=== PATIENT | male | born 1960 | race Caucasian/White ===

== ENCOUNTER 2018-08-25 12:00 | Outpatient (RCR) | payer MEDICARE, MEDICAID, SELFPAY ==
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
--- NOTE | 2018-08-25 14:58 | HP.SP.DC ---
ST Discharge Summary - Discharged: Discharge: Modesto Posey is discharged from outpatient speech-language therapy effective 08/25/18. Modesto attended six sessions following his initial evaluation targeting diaphragmatic breathing and appropriate phrasing for breath support to improve vocal intensity. Additionally, Modesto utilized compensatory strategies (increasing volume, slowing rate, over-exaggerating articulation, and facing his listener) to improve overall intelligibility, as well as working to appropriately respond to a conversation partners cues. Modesto was able to demonstrate successful use of all strategies given minimal to moderate prompting during therapy sessions. However, he did state feeling somewhat uncomfortable increasing his vocal volume. Please reconsult as necessary.
== END 2018-08-25 19:00 | disposition home or self-care (01) ==
LOC: SP 12:00
PROVIDERS: Family Provider Internal Medicine; PCP Internal Medicine; Referring Provider Internal Medicine; Visit Provider Internal Medicine
DX: R47.89 Other speech disturbances (principal)
CPT/HCPCS: 92507; 92524

== ENCOUNTER → 2018-11-03 13:41 | Outpatient (CLI) | payer MEDICARE, MEDICAID, SELFPAY ==
[2017-03-27 11:45] VITALS: BMI 34.9
[2018-11-03 16:02] LABS: Anion Gap 5 (5-15); BUN 14 mg/dL (7-18); BUN/Creat Ratio 18.3 RATIO (10-20); Calcium,Total 8.4 mg/dL (8.5-10.1); Chloride 109 mmol/L (98-107); Creatinine, Serum 0.76 mg/dL (0.70-1.30); EST Glomerular Filtration Rate 111 mL/min (>60); Est Glom Filt Rate - Afr Amer 134 mL/min (>60); Glucose 80 mg/dL (74-106); PSA,Total - Annual Screen 0.73 ng/mL (0.00-4.00); Potassium 4.4 mmol/L (3.5-5.1); Sodium Level 142 mmol/L (136-145)
== END ==
PROVIDERS: Family Provider Internal Medicine; PCP Internal Medicine; Referring Provider Urology; Visit Provider Urology
DX: R33.9 Retention of urine, unspecified (principal); Z12.5 Encounter for screening for malignant neoplasm of prostate; Z87.448 Personal history of other diseases of urinary system
CPT/HCPCS: 36415; 80048; 84153; G0103

== ENCOUNTER 2019-09-10 11:07 | Emergency (ER) | payer MEDICARE, MEDICAID, SELFPAY ==
[2019-09-10 11:10] VITALS: BP 149/101; PULSE 69; RESP 16; TEMP 36.1; O2SAT 98; BMI 32.8
--- NOTE | 2019-09-10 11:22 | ED.VIS.INJ ---
History of Present Illness Chief Complaint: Fall Informant: Patient, - - Caregiver Limited: - - Mild intellectual disability Onset: Today Mechanism/Context: Fall Quality of Pain: - - Head Current Severity: Gone Maximum Severity: Mild Worsened by: Initial impact Relieved by: Nothing Associated Symptoms: Negative for: Parasthesias, Weakness, Loss of consciousness, Amnesia Narrative: Patient is 58-year-old male with mild intellectual disability who presents after fall. He slipped on the ice. Fell backwards landed his buttocks and hit the back of his head. He complained of mild head discomfort and dizziness. He did not complain of visual disturbance. There was no vomiting. Caregiver states he is at baseline presently. He voices no complaints on questions asked. Tetanus Immunization: <5 years Prior similar symptoms: No Recent Illness/Hospitalization: No - Past Medical History (1) Mild intellectual disability Status: Acute Past Medical History - Allergies and Home Meds Allergies/Adverse Reactions: Allergies No Known Allergies Allergy (Verified 09/10/19 11:11) Primary Care Physician: Ester Alexander DO [Primary Care Provider] - Prior records reviewed: Yes Surgical History: noncontributory Lives: Roommate Smoking Status: Never smoker Alcohol: None Drugs: None Review of Systems General: Denies: Fever Eyes: Denies: Visual changes - bilaterally, Blurred Vision - bilaterally ENT: Denies: Bilateral ear pain Cardiovascular: Denies: Chest pain, Palpitations Respiratory: Denies: Dyspnea Gastrointestinal: Denies: Nausea, Vomiting Musculoskeletal: Denies: Myalgias, Arthralgias, Neck pain, Back pain, Swelling, Extremity Pain Skin: Denies: Rash, Wounds Neurological: Reports: Headache, - - Dizziness. Unable to quantitate her qualitate. Hematologic: Denies: Easy bruising, Easy bleeding Allergy: Denies: Uticaria, Swelling of the mouth Physical Exam Vital Signs/Narrative: Vital Signs Temp Pulse Resp BP Pulse Ox 09/10/19 11:10 97 F L 69 16 149/101 H 98 Inital Vital Signs reviewed: Yes General: Well nourished, Well developed Head: Normocephalic, Trauma, Tenderness, - - Is evidence of a occipital hematoma. There is no palpable depression. There is no clinical findings of basilar skull fracture.. Negative for: Atraumatic Eyes: Perrl, EOMI, - - There is no subconjunctival hemorrhage noted.. Negative for: Pale conjunctiva, Scleral icterus ENT: TM's clear, No hemotympanum or drainage, No trauma Neck: Nontender, Full ROM Cardiovascular: Regular rate, Regular rhythm, No murmurs Respiratory: No distress, CTA bilaterally, Chest nontender Abdomen: Soft, Nontender, Nondistended, Normal bowel sounds, - - No pain palpation of the pelvis and specifically sacrum and coccyx region. Back: Nontender Skin: Normal color, No rash Neurological: Alert, Oriented x3, Cranial nerves II-XII grossly intact, Normal Strength, Normal Sensation, Normal DTR - DTR 2+ upper and lower extremity and symmetric., Normal Gait, - - Cerebellar testing normal. Gait normal. Able to walk on heels and toes. Tandem gait normal. Psychological: Normal affect Diagnostic/Tx/Re-eval - Medical Decision Making With a nonfocal neurologic exam no loss of consciousness per the [place] CT head rule imaging is not warranted. Patient was discharged to home with appropriate home-going instructions for concussion. There is evidence of a scalp contusion. ED Disposition - Plan for ED Patient: Disposition: Home or Assisted Living Diagnosis: Concussion without loss of consciousness, initial encounter, Scalp contusion Instructions: CONCUSSION, No Wake Up Referrals: Ester Alexander DO [Primary Care Provider] - 1-2 Weeks
== END 2019-09-10 11:37 | disposition home or self-care (01) ==
LOC: ED 11:36
PROVIDERS: Emergency Provider Emergency Medicine; PCP Internal Medicine
DX: S06.0X0A Concussion without loss of consciousness, initial encounter (principal); W00.0XXA Fall on same level due to ice and snow, initial encounter; F70 Mild intellectual disabilities
CPT/HCPCS: 99282

== ENCOUNTER → 2019-12-28 10:39 | Outpatient (CLI) | payer MEDICARE, MEDICAID, SELFPAY ==
[2019-12-28 11:28] LABS: PSA,Total- Diagnostic 0.88 ng/mL (0.0-4.0)
--- OUTSIDE RECORDS SUMMARY | 2020-05-01 13:30 | XMS RPT_ITS | CCD ---
:1960 External Reference #:[id number] Author Organization [facility] Care Team Providers Name Role Phone Catherine Unavailable Richard King Unavailable Catherine Unavailable State mental [facility] facility Unavailable [place] Unavailable Unavailable [place] Unavailable Unavailable Messenger Unavailable Unavailable [facility] [place] Unavailable Richard King MD Unavailable Catherine Unavailable Richard King Unavailable Catherine [facility] Unavailable [place] Unavailable Unavailable Messenger Unavailable Unavailable [facility] [place] Unavailable Arie Lam PA-C Unavailable Catherine Attending Unavailable Catherine Referring Unavailable Catherine Consulting Unavailable Hussein Unavailable Unavailable Gravius Unavailable Unavailable [place] Unavailable Unavailable Hussein Unavailable Unavailable Allergies Reported Allergen Reaction(s) Severity Date of Onset Location NEGATED: Highlighted row 03-25-2017 - Com prehensive Internal has been ruled out! Medicine ([id number]) NEGATED: Highlighted row Com prehensive Internal has been ruled out! Medicine ([id number]) Medications Medication Name Sig Date Prescriber Location acetaminophen / BENADRYL 04-10-2007 Comprehensiv e diphenhydrAMINE / ALLERGY/COLD, - Internal Medicine phenylephrine 12.5-5-325MG (Oral 01-29-2011 (98610) Tablet) Tablet prn for 0 days Refills: 0 Ordered: 29-Jan-2011 Start : 10-Apr-2007 End : 29-Jan-2011 Inactive amoxicillin / AUGMENTIN, 02-03-2015 Carol Sara Comprehensi ve clavulanate 875-125MG (Oral - Internal Med icine Tablet) 1 (one) 12-14-2015 (44605) Tablet Tablet bid for 0 days Quantity: 20 {Tablet} Refills: 0 Ordered: 14-Dec-2015 Carol Ruiz LPN Start : 03-Feb-2015 End : 14-Dec-2015 Inactive bacitracin / neomycin TRIPLE ANTIBIOTIC, 03-06-2011 Carol Choudhury er Comprehensive / polymyxin b 5-400-5000 - Internal Medic ine (External 05-14-2011 (50336) Ointment) 1 Ointment daily for 0 days Quantity: 1 {Ointment} Refills: 0 Ordered: 14-May-2011 Carol Ruiz LPN Start : 06-Mar-2011 End : 14-May-2011 Inactive bethanechol URECHOLINE 25 MG 03-07-2017 [facility] Surgica l TABS One tablet by Associate s (80286) mouth twice daily BETHANECHOL CHLORIDE [id number] Oz King MD BETHANECHOL CHLORIDE, 25MG 12-14-2015 Carol alvarado [facility] Surgical Associates (Oral Tablet) 2 (two) Catherine (72279) Tablet qid for 0 days Quantity: 60 {Tablet} Refills: 0 Ordered: 14-Dec-2015 Ester Cruz DO, DO, Kathleen Start : 14-Dec-2015 Active Centrum CENTRUM (Oral Tablet) 1 qd Carol rodriguez Comprehensive Internal for 0 days Refills: 0 Medici ne (90918) Ordered: 10-Feb-2009 Carol Ruiz LPN Active CENTRUM (Oral Tablet) 1 qd for 0 Carol [facility] Comprehensive Internal Medicine days Refills: 0 Ordered: (39628) 10-Feb-2009 Carol Ruiz LPN Active CENTRUM (Oral CENTRUM (Oral Tablet) 1 Carol [facility] Comprehensive Internal Tablet) qd for 0 days Refills: Medic ine (72991) 0 Ordered: 10-Feb-2009 Carol Ruiz LPN Active CENTRUM (Oral Tablet) 1 qd for 0 Carol [facility] Internal Medicine days Refills: 0 Ordered: (22157) 10-Feb-2009 Carol Ruiz LPN Active CENTRUM (Oral Tablet) 1 qd for 0 [facility] Internal Medicine days Refills: 0 Ordered: (47541) 10-Feb-2009 Carol Ruiz LPN Active CENTRUM (Oral Tablet) 1 qd for 0 [facility] Internal Medicine days Refills: 0 Ordered: (04216) 10-Feb-2009 Carol Ruiz LPN Active CENTRUM (Oral Tablet) 1 qd for 0 [facility] Internal Medicine days Refills: 0 Ordered: (05603) 10-Feb-2009 Carol Ruiz LPN Active CENTRUM (Oral Tablet) 1 qd for 0 [facility] Internal Medicine days Refills: 0 Ordered: (05779) 10-Feb-2009 Carol Ruiz LPN Active CENTRUM (Oral Tablet) 1 qd for 0 [facility] Internal Medicine days Refills: 0 Ordered: (93974) 10-Feb-2009 Carol Ruiz LPN Active ciprofloxacin CIPRO, 250MG (Oral 08-26-2008 - Staci Ciesa Comprehe nsive Tablet) 1 (one) 09-03-2008 Internal Med icine Tablet bid for 7 (71428) days Quantity: 20 {Tablet} Refills: 0 Ordered: 26-Aug-2008 Ciesa [employer] Staci Start : 26-Aug-2008 End : 03-Sep-2008 Inactive CIPRO, 500MG (Oral 03-20-2007 - [facility] Comprehensive Internal Tablet) 1 (one) Tablet 04-10-2007 Medicine (33682) Twice daily for 0 days Quantity: 28 {Tablet} Refills: 0 Ordered: 20-Mar-2007 Carol Ruiz LPN Start : 20-Mar-2007 End : 10-Apr-2007 Inactive cyclobenzaprine FLEXERIL, 5MG 05-15-2011 - Carol Rosasi ve (Oral Tablet) 1 08-14-2012 [facility] Internal Med icine (one) Tablet tid (32268) prn muscle spams for 0 days Quantity: 30 {Tablet} Refills: 0 Ordered: 14-Aug-2012 Carol Ruiz LPN Start : 15-May-2011 End : 14-Aug-2012 Inactive desoximetasone Topicort 0.25 % 02-03-2015 - Carol Rosas ryan External Cream 1 03-23-2016 [facility] Internal Me dicine (one) Cream (49777) Cream apply bid for 0 days Quantity: 1 {Tube} Refills: 0 Ordered: 23-Mar-2016 Carol Ruiz LPN Start : 03-Feb-2015 End : 23-Mar-2016 Inactive etodolac ETODOLAC ER, 12-31-2013 - ROSENDO Whitt 400MG (Oral 02-03-2015 Internal Medici ne Tablet Extended (01808) Release 24 Hour) 2 (two) Tablet ER 24HR qd take with food for 0 days Quantity: 20 {Tablet} Refills: 0 Ordered: 03-Feb-2015 ROSENDO Peace LPN Start : 31-Dec-2013 End : 03-Feb-2015 Inactive hydrocortisone ANUSOL-HC, 25MG 04-03-2010 - Comprehens ryan (Rectal 01-29-2011 Internal Medici ne Suppository) 1 (48032) (one) Suppository qhs for 0 days Quantity: 10 {Suppository} Refills: 0 Ordered: 29-Jan-2011 Start : 03-Apr-2010 End : 29-Jan-2011 Inactive lactobacillus rhamnosus CULTURELLE, 10B 02-01-2011 - Carol Carrasco omprehensive gg CELL (Oral 05-14-2011 Messenger Internal Medici ne Capsule) 1 (55380) Capsule bid for 0 days Quantity: 30 {Capsule} Refills: 0 Ordered: 14-May-2011 Carol Ruiz LPN Start : 01-Feb-2011 End : 14-May-2011 Inactive meloxicam MOBIC, 7.5MG 09-10-2012 - Carol Whitt (Oral Tablet) 1 12-03-2013 [facility] Internal Med icine Tablet daily for (84961) 0 days Quantity: 30 {Tablet} Refills: 1 Ordered: 03-Dec-2013 Carol Ruiz LPN Start : 10-Sep-2012 End : 03-Dec-2013 Inactive metaxalone METAXALONE, 05-14-2011 - Carol Whitt 800MG (Oral 05-21-2011 Messenger Internal Medici ne Tablet) 1 Tablet (46930) tid prn for 0 days Quantity: 30 {Tablet} Refills: 0 Ordered: 21-May-2011 Carol Ruiz LPN Start : 14-May-2011 End : 21-May-2011 Inactive methylPREDNISolone Medrol 4 MG Oral 03-18-2019 - Aracely Gravius Com prehensive Tablet Therapy 05-27-2019 Internal Medi cine Pack 1 (one) (55434) Tablet tad for 0 days Quantity: 1 {Tablet} Refills: 0 Ordered: 27-May-2019 Aracely Fang CMA Start : 18-Mar-2019 End : 27-May-2019 Inactive Comments: with food Comment: with food MULTIPLE VITAMINS-MINERALS CENTRUM MEN TABS One 03-07-2017 [facility] Surgical tablet by mouth daily Associ ates (62881) MULTIPLE VITAMINS-MINERALS [id number] Oz King MD MULTIPLE VITAMINS-MINERALS CENTRUM MEN TABS One 03-07-2017 [facility] Surgical tablet by mouth daily Associ ates (42153) MULTIPLE VITAMINS-MINERALS [id number] Oz King MD CENTRUM MEN TABS One tablet by mouth 03-07-2017 [facility] Surgical Associates (52115) daily MULTIPLE VITAMINS-MINERALS 81084662166 Oz King MD CENTRUM MEN TABS One tablet by mouth 03-07-2017 [facility] Surgical Associates (67944) daily MULTIPLE VITAMINS-MINERALS 16834275906 Oz King MD CENTRUM MEN TABS One tablet by mouth 03-07-2017 [facility] Surgical Associates (32748) daily MULTIPLE VITAMINS-MINERALS [id number] Oz iKng MD naproxen ALEVE, 220MG (Oral 05-21-2011 - Carol Ocampo hensive Tablet) 2 (two) 06-20-2011 Internal Med icine Tablet Twice daily (36089) PRN for 30 days Quantity: 1 {Tablet} Refills: 0 Ordered: 21-May-2011 Carol Ruiz LPN Start : 21-May-2011 End : 20-Jun-2011 Inactive predniSONE PREDNISONE, 20MG 02-03-2015 - Jamilah Atkinson Comprehensi ve (Oral Tablet) 1 02-18-2015 Internal Med icine (one) Tablet Tablet (08492) uad for 15 days Refills: 0 Ordered: 30-Aug-2015 Jamilah Atkinson LPN Start : 03-Feb-2015 End : 18-Feb-2015 Inactive Comments: 2 a d for 5 d, 1 a d for 5d, 1/2 a d for 5 d Comment: 2 a d for 5 d, 1 a d for 5d, 1/2 a d for 5 d Spirometer Spirometer Kit 1 (one) 01-03-2017 Aida Manchak Co mprehensive Internal Kit Kit 10 breaths q2h Ester Catherine Me dicine (80891) while awake for 0 days Quantity: 1 {Each} Refills: 0 Ordered: 25-Mar-2017 Catherine DO, Ester Catherine DO, Ester Start : 03-Jan-2017 Active Spirometer Kit 1 (one) 01-03-2017 Aida Manchak Comprehen sive Internal Kit Kit 10 breaths q2h Ester Catherine Medicine (82240) while awake for 0 days Quantity: 1 {Each} Refills: 0 Ordered: 25-Mar-2017 Catherine DO, Ester Catherine DO, Ester Start : 03-Jan-2017 Active Spirometer Kit Spirometer Kit 1 01-03-2017 - Aracely Gravius Compreh ensive (one) Kit Kit 10 01-14-2019 Internal Me dicine breaths q2h while (66478) awake for 0 days Quantity: 1 {Each} Refills: 0 Ordered: 14-Jan-2019 Gravius LICENSING ANALYST, Aracely Start : 03-Jan-2017 End : 14-Jan-2019 Inactive Spirometer Kit 1 (one) 01-03-2017 - Aracely Gravius Comprehen sive Internal Kit Kit 10 breaths q2h 01-14-2019 Medicine (11515) while awake for 0 days Quantity: 1 {Each} Refills: 0 Ordered: 14-Jan-2019 [facility]ius LICENSING ANALYST, Aracely Start : 03-Jan-2017 End : 14-Jan-2019 Inactive Spirometer Kit 1 (one) 01-03-2017 - Aracely Gravius Comprehen sive Internal Kit Kit 10 breaths q2h 01-14-2019 Medicine (49338) while awake for 0 days Quantity: 1 {Each} Refills: 0 Ordered: 14-Jan-2019 Gravius , Aracely Start : 03-Jan-2017 End : 14-Jan-2019 Inactive Spirometer Kit 1 (one) 01-03-2017 - Aracely Gravius Comprehen sive Internal Kit Kit 10 breaths q2h 01-14-2019 Medicine (86771) while awake for 0 days Quantity: 1 {Each} Refills: 0 Ordered: 14-Jan-2019 Gravius , Aracely Start : 03-Jan-2017 End : 14-Jan-2019 Inactive Spirometer Kit 1 (one) 01-03-2017 - Aracely Fang Comprehmaeve sive Internal Kit Kit 10 breaths q2h 01-14-2019 Medicine (02942) while awake for 0 days Quantity: 1 {Each} Refills: 0 Ordered: 14-Jan-2019 Annalisa Lissin Start : 03-Jan-2017 End : 14-Jan-2019 Inactive Spirometer Kit 1 (one) 01-03-2017 Aida Manchak Comprehen sive Internal Kit Kit 10 breaths q2h Ester Catherine Medicine (99672) while awake for 0 days Quantity: 1 {Each} Refills: 0 Ordered: 25-Mar-2017 Catherine DO, Ester Catherine DO, Ester Start : 03-Jan-2017 Active Spirometer Kit 1 (one) 01-03-2017 Aida Manchak Comprehen sive Internal Kit Kit 10 breaths q2h Ester Catherine Medicine (20471) while awake for 0 days Quantity: 1 {Each} Refills: 0 Ordered: 25-Mar-2017 Catherine DO, Ester Catherine DO, Ester Start : 03-Jan-2017 Active tamsulosin Tamsulosin HCl 0.4 05-14-2018 - Aracely Elbasaray Compreh ensive MG Oral Capsule 1 01-14-2019 Internal M edicine (one) Capsule qd for (90150) 0 days Quantity: 30 {Capsule} Refills: 0 Ordered: 14-Jan-2019 Annalisa SNYDER Aracely Start : 14-May-2018 End : 14-Jan-2019 Inactive Comment: urologist rx Problems Active Problems Category Problem Name Status Date Location Abdominal hernia Umbilical hernia Active 03-07-2017 - - [facility] S urgical without obstruction AND 06-24-2017 - Asso ciates (73428) without gangrene Comment: s/p repaired Anxiety disorders Unspecified Active Comprehens ryan Internal nonpsychotic mental Medicine (70416) disorder 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 7 - Associates (62623) 50-70) Gastrointestinal Rectal hemorrhage Active Compre hensive Internal hemorrhage 3 - Medicine (70666 ) Genitourinary symptoms and Hematuria, Active C omprehensive Internal ill-defined conditions unspecified 9 - Medic ine (36335) Comment: s/p tx uti--all sx got much better except the postvoid dribbling Hyperplasia of Benign prostatic Active 03-07-2017 - [facility] Surgi arti prostate hypertrophy without Associat es (34697) outflow obstruction Comment: stable Immunizations and Need for prophylactic [facility] screening for infectious vaccination and Medicine (08635) disease inoculation against influenza Nonspecific chest pain [facility] (89207 ) Other acquired deformities Unspecified curvature Active Comprehensive Internal of spine Medicine (02942 ) Other gastrointestinal Diarrhea Active [facility] Internal disorders 3 - Medicine (74498 ) Comment: results pending still, held metamucil Other lower Shortness of breath Active 09-23-2017 - Comprehe [facility] Internal respiratory disease Medicine (51805) Comment: pulm ? cv?, and possible gregg ght gain? i think this is more lots of wt gain over yr- and lack of fitness-- work up for same complaint over [facility] [place], operated by [facility]-- discussed portion control and cuttign back for good nutrit ion and wt loss Other nervous system Impaired cognition Active C omprehensive Internal disorders Medicine (24386 ) Other non-traumatic Knee pain Active 02-03-2015 Comprehe nsive Internal joint disorders - Medicine (18 007) Other nutritional; Calcinosis Active 03-07-2017 [facility] Surgi arti Associates endocrine; and - (24204) metabolic disorders Other nutritional; Body mass index 30+ - Active 01-14-2019 Comprehensive Internal endocrine; and obesity - Medicine (842 93) metabolic disorders Other nutritional; Weight gain Active [facility] Internal endocrine; and Medicine (178 51) metabolic disorders Comment: gained wt again after losing Other upper respiratory Allergic rhinitis Active 02-03-2015 - Comprehensive Internal disease Medicine (24903 ) Comment: stable Other upper respiratory Abnormal voice Active 06-11-2018 - Co mprehensive Internal disease Medicine (42062 ) Spondylosis; Low back pain Active 11-23-2008 - Comprehensive Internal intervertebral disc Medicine (48728) disorders; other back problems Comment: stable Unclassified Weight gain Active Comprehensive I nternal Medicine (61728) Unclassified Nutritional counseling Active [facility] Internal Medicine (10035) Unclassified BMI 33.0-33.9,adult Active Comprehe nsive Internal Medicine (52547) Unclassified Cognitive dysfunction, acquired Active [facility] Internal Medicine (59259) Unclassified Dog scratch Active Comprehensive I nternal Medicine (67195) Unclassified BPH without Urin. Obst (600.00) Active Comprehensive Internal Medicine (98302) Unclassified BMI 36.0-36.9,adult Active Comprehe nsive Internal Medicine (98546) Unclassified Non-smoker Active Comprehensive I nternal Medicine (72063) Unclassified BPH without urinary obstruction Active [facility] Internal Medicine (22585) Unclassified Mild degeneration of cervical Active [facility] Internal Medicine intervertebral disc (94313) Unclassified Encounter for screening for Active Comprehensive Internal Medicine lipid disorder (81003) Unclassified Other general medical Active Compre hensive Internal Medicine examination for administrative (64289) purposes (V70.3) Unclassified Needs influenza immunization Active [facility] Internal Medicine (89815) Unclassified SYMPTOMS INVOLVING URINARY Active C omprehensive Internal Medicine SYSTEM; POST-VOID DRIBBLING (38909) (788.35) Unclassified Active Comprehensive I nternal Medicine (98199) Unclassified Nonsmoker Active Comprehensive I nternal Medicine (71183) Unclassified Non-smoker Active Comprehensive I nternal Medicine (52775) Unclassified BMI 32.0-32.9,adult Active Comprehe nsive Internal Medicine (08849) Unclassified Influenza vaccination declined Active [facility] Internal Medicine (65267) Past or Other Problems Category Problem Name Status Date Location Administrative/soci Counseling procedure Completed 02-03-2015 - Comprehensive Internal al admission with explicit Medicine (7389 1) context Comment: papers filled out for specia l [employer] Allergic reactions Contact dermatitis Completed 03-23-2016 - Com prehensive Internal due to poison chelo Medicine ( 93369) Comment: better talkabout finish augm entin and prednisone filled out paper for work Headache, including Headache Completed 05-26-2013 - Comprehe nsive Internal migraine Medicine (06466 ) Neoplasms of Neoplasm of Completed 05-26-2013 - Comprehensive I nternal unspecified nature or uncertain behavior Medicine (70691) uncertain behavior of skin Comment: buttocks Other connective Spasm Completed 05-14-2011 - - Comprehen sive tissue disease 05-26-2013 - Internal Medi cine (38837) Other ear and sense Impacted cerumen Completed 11-12-2013 - Comp rehensive organ disorders Internal Med icine (24572) Comment: both ears, after irrigation left ear still with cerumen Other ear and sense Bilateral hearing Completed 09-23-2017 - Com prehensive Internal organ disorders loss Medicine (44 691) Other ear and sense Unspecified hearing C omprehensive Internal organ disorders loss, left ear Medicine ( 55235) Other ear and sense Otalgia, left ear Completed 03-23-2016 - Com prehensive Internal organ disorders Medicine (44 691) Other eye disorders Pain of bilateral Completed 05-27-2019 - [facility] prehensive Internal eyes Medicine (79735 ) Other injuries and Dog scratch Completed 02-03-2015 - Comprehen sive Internal conditions due to Medicine ( 31922) external causes Comment: last tdap 2008 Other non-traumatic Pain in joint, Completed 02-03-2015 - Compre hensive joint disorders shoulder region Internal Medicine (03762) Unclassified Lesion-Unknown Comprehensive behavior (238.2) Internal Me dicine (57664) Unclassified Hearing loss of left Completed Compreh ensive ear Internal Medici ne (00830) Unclassified CONTACT DERMATITIS Comprehen sive D/T POISON CHELO, Internal Med icine (692.6) (34387) Unclassified Chest pain, Comprehensive unspecified type Internal Me dicine (63688) Unclassified Body mass index Completed Comprehensiv e 32.0-32.9, adult Internal Me dicine (80283) Unclassified Other intervertebral Completed Compreh ensive disc degeneration, Internal Medicine lumbar region (79547) Unclassified Otalgia, left Comprehensive Internal Medici ne (86666) Unclassified Hearing loss due to Comprehe nsive cerumen impaction, Internal Medicine bilateral (50986) Unclassified BMI 33.0-33.9, ADULT Completed Compreh ensive (V85.33) Internal Medici ne (69391) Unclassified Patient encounter 09-23-2017 - Comprehens ryan status Internal Medici ne (28172) Unclassified Annual Medicare Completed Comprehensiv e Physical (V70.0) Internal Me dicine (76510) Unclassified SCREENING FOR CANCER Completed Compreh ensive OF THE PROSTATE Internal Med icine (V76.44) (65849) Unclassified PAIN IN JOINT Comprehensive INVOLVING SHOULDER Internal Medicine REGION (719.41) (05320) Unclassified 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 Internal Medicine Spine (722.4) (09894) Unclassified Degenerative Disc Comprehens ryan Disease - Lumbar Internal Me dicine (722.52) (97306) Unclassified CURVATURE, SPINE NOS Compreh ensive (737.9) Internal Medici ne (56017) Unclassified BMI 34.0-34.9,adult Comprehe nsive Internal Medici ne (13579) Unclassified BMI 35.0-35.9,adult Comprehe nsive Internal Medici ne (40743) Unclassified Unspecified Diagnosis 02-03-2015 - Compre hensive Internal Medici ne (77542) Unclassified Cerumen impaction Comprehens ryan (380.4) Internal Medici ne (56205) Unclassified Nonspecific abnormal Compreh ensive findings on Internal Medici ne radiological and (31687) other examination of genitourinary organs (793.5) Unclassified Screening status Comprehensi ve Internal Medici ne (86688) Unclassified Screening for Completed Comprehensive prostate cancer Internal Med icine (62754) Unclassified Muscle spasm (728.85) Compre hensive Internal Medici ne (72623) Unclassified Abnormal findings on Completed 02-03-2015 - Compreh ensive diagnostic imaging of [employer]) al Medicine other specified body (24182) structures Unclassified Encounter for Completed Comprehensive screening for Internal Medic ine malignant neoplasm of (55892 ) colon (Renamed from Special screening for malignant neoplasms, colon) Unclassified Annual Medicare Completed Comprehensiv e Physical WITH Internal Medic ine abnormal findings (75896) (Renamed from Encounter for general adult medical examination with abnormal findings) Unclassified Annual Medicare Completed Comprehensiv e Phyiscal WITHOUT Internal Me dicine abnormal findings (86423) (Renamed from Encounter for general adult medical examination without abnormal findings) Unclassified Urogenital finding Completed 02-03-2015 - Comprehen sive Internal Medici ne (44777) Unclassified Pain in eye, Comprehensive bilateral Internal Medici ne (44977) Unclassified SYMPTOMS INVOLVING Comprehen sive URINARY SYSTEM; Internal Med icine DYSURIA (788.1) (85615) Results Result Name Value Range Unit Interpretation Flag Date Location serum creatinine and gfr Ordered By: Bag Grader on 2017-04-16 Creatinine mass conc 0.84 0.70-1.30 mg/dL Normal 7 Comprehensive Internal Medicine ( 82561) Comment: The validity of the calculat ed GFR AND GFRAA in patients over70 years has not been determined. Clinica l correlation isessential. [facility] [id number] [place], [place], [address] EST GFR - AA 121 mL/min Normal 04-16-2017 [facility]pre [facility] (22685) Comment: GFR Calc GFR/1.73 sq M predicted 100 mL/min Normal 2016 Comprehensive Internal among non-blacks MDRD vol Medicine (10899) rate/area (S/P/Bld) Comment: Non- GFR Arti c [facility] [id number] [place], [place], [address] 121 mL/min Normal 04-16-2017 Comprehen [facility] Internal Medicine (95561) Comment: GFR Calc [facility] [id number] [place], [place], [address] bun Ordered By: Syst em Mass Communications Instructor on 2017-04-16 Urea nitrogen mass conc 22 7-18 mg/dL Abnormal 2016 Comprehensive Internal Medicine ( 29281) Comment: [facility] [id number] [place], [place], [address] office visit: f/u umbilical hernia on 2017-04-08 Fall risk No Invalid 04-08-2017 - [facility] Lavinia gical assessment Interpretation Code 7 Associates (56448) Protein mass conc Done Invalid 04-08-2017 [facility] Surgical Interpretation Code 04-08-2017 Associates (45582) Tobacco smoking Never Invalid 04-08-2017 - Surgical status [facility] Interpretation Code 04-08-20 17 Associates (44608) Tobacco smoking Former Invalid 04-08-2017 - Surgical status [facility] smoker Interpretation Code 04-08-20 17 Associates (76231) hernia Ordered By: S ystem Mass Communications Instructor on 2017-03-27 Hernia See Note Normal 03-27-[address] [facility] Internal Medicine (42273) Comment: Patient: GATITO WONG : 1960 (56/M) Acct Num: [id number] Phys: Christine KATE,Oz Unit Num: [id number] Loc: [facility] Specimen: [id number] Received: 03/27/17 - 1548 Spec Type: H gavi TISSUES TISSUES: GROSS DESCRIPTION Received is one container la belwade with the patient's name and not further designated. The specimen con sists of a piece of skin with underlying tissue measuring 8 x 3.5 cm and up to 4 cm in thickness. Senior Administrative Associate sections are submitted in one cassett e. / SJ:amber 03/28/17 TC: 5 CPT:35287 HEADER OPERATION: Hernia, umbilical , mesh PRE-OP DIAGNOSIS: Umbilical hernia TISSUE SUBMITTED: Umbilicus and umb ilical hernia sac MICROSCOPIC DESCRIPTION Slides are reviewed. MICROSCOPIC DI AGNOSIS Soft tissue of umbilical region, excision: Hernia sac with fi brosis. Fragment of skin with no significant pathologic change. AM:walter 03/15 11/28 Signed Pepe Alex 04/01/17 Louis [facility] [id number] [place], [address] psa,total - annual screen Ordered By: Bag Grader on 2017-03-25 Prostate specific Ag 0.76 0.00-4.00 ng/mL Normal 7 [facility] ( 43983) Comment: This test was performed usin g the TPSA assay method for theDiDeliverooon chemistry system. Values obt ained with differentassay methods cannot be used interchangably.When changing PSA assays in the course of monitoring apatient, additional sequent ial testing should be carriedout to confirm baseline values. PSA IS FOR LINA SARAVIA I S FOR [facility]INGWC[facility] [address] [place], [address] lab report: psa,total - annual screen on 2017-03-25 prostate 0.76 0.00-4.00 ng/mL Invalid 03-25-2017 - [facility] Lavinia gical specific Interpretation Code 03-25-2017 Associates antigen (PSA) (40877 ) screening PSA,TOT SCREEN 0.76 0.00-4.00 ng/mL Invalid 03-25-2017 - [facility] Surgical Interpretation Code 03-25-2017 [facility] (68479) lab report: cbc-complete blood cnt no di ff on 2017-03-25 Hematocrit (HCT) 44.4 40-54 % Invalid 03-25-2017 [facility] Surgical Interpretation Assoc iates Code (57073) MCH 28.0 27.0-32.0 pg Invalid 03-25-2017 [facility] Surgi arti Interpretation Assoc iates Code (58320) MCV 83.3 80-94 fL Invalid 03-25-2017 [facility] Surgi arti Interpretation Assoc iates Code (92223) RDW-CA 14.3 11.6-14.6 % Invalid 03-25-2017 [facility] Surgi arti Interpretation Assoc iates Code (35268) WBC (Leukocytes) 6.1 4.4-11.0 10*9/L Invalid 03-25-2017 [facility] Surgical Interpretation Assoc iates Code (21996) Erythrocyte 43.2 35.1-43.9 fL Invalid 03-25-2017 - [facility] S urgical distribution Interpretation 03-25-2017 A ssociates width Auto Ratio Code (44 961) (RBC) Erythrocytes 5.33 4.6-6.2 10*6/u Invalid 03-25-2017 [facility] Surgical (RBC) L Interpretation 03-25-2017 Asso ciates Code (50058) MCHC 33.6 32-36 Invalid 03-25-2017 - [facility] Lavinia gical G/GL Interpretation 03-25-2017 Asso ciates Code (47132) Platelets 220 150-450 10*3/m Invalid 03-25-2017 - [facility] Lavinia gical m3 Interpretation 03-25-2017 Asso ciates Code (93013) PMV by 10.6 6.2-12.0 fL Invalid 03-25-2017 - [facility] Lavinia gical Evans-Carlito Interpretation 03-25-2017 Ass ociates Code (85093) red blood cell 43.2 35.1-43.9 fL Invalid 03-25-2017 - [facility] Surgical distribution Interpretation 03-25-2017 A ssociates width, size Code (42710) density lab report: basic metabolic profile (bmp ) on 2017-03-25 Anion gap 7 5-15 mmol/L Invalid 03-25-2017 - [facility] Lavinia gical Interpretation 03-25-2017 Asso ciates Code (09307) Anion gap 4 7 5-15 Invalid 03-25-2017 - [facility] S urgical molar conc Interpretation 03-25-2017 Ass ociates Code (57676) BUN/Creatinine 11.3 10-20 Invalid 03-25-2017 - [facility] Surgical Ratio RATIO Interpretation 03-25-2017 Asso ciates Code (01400) Calcium 8.7 8.5-10.1 mg/dL Invalid 03-25-2017 - [facility] Lavinia gical Interpretation 03-25-2017 Asso ciates Code (04621) Chloride 106 98-107 mmol/L Invalid 03-25-2017 - [facility] Lavinia gical Interpretation 03-25-2017 Asso ciates Code (33380) CO2 27.0 21.0-32. mmol/L Invalid 03-25-2017 - [facility] Lavinia gical 0 Interpretation 03-25-2017 Asso ciates Code (65673) CO2 ppres 27.0 21.0-32. mmol/L Invalid 03-25-2017 - [facility] Lavinia gical (BldV) 0 Interpretation 03-25-2017 Asso ciates Code (13407) Creatinine 0.80 0.70-1.3 mg/dL Invalid 03-25-2017 - [facility] Calzada rgical 0 Interpretation 03-25-2017 Asso ciates Code (73636) eGFR 128 >60 mL/min Invalid 03-25-2017 - [facility] Lavinia gical (non-black) Interpretation 03-25-2017 As sociates Code (37761) eGFR 106 >60 mL/min Invalid 03-25-2017 - [facility] Lavinia gical (non-black) Interpretation 03-25-2017 As sociates Code (55200) EST GFR - AA 128 >60 mL/min Invalid 03-25-2017 - [facility] Surgical Interpretation 03-25-2017 Asso ciates Code (48025) Glucose 82 70-110 mg/dL Invalid 03-25-2017 - [facility] Lavinia gical Interpretation 03-25-2017 Asso ciates Code (64177) Glucose mass 82 70-110 mg/dL Invalid 03-25-2017 - [facility] Surgical conc Interpretation 03-25-2017 Asso ciates Code (03060) Potassium 4.3 3.5-5.1 mmol/L Invalid 03-25-2017 - [facility] Lavinia gical Interpretation 03-25-2017 Asso ciates Code (21193) Sodium 140 136-145 mmol/L Invalid 03-25-2017 - [facility] Lavinia gical Interpretation 03-25-2017 Asso ciates Code (35218) Urea nitrogen 9 7-18 mg/dL Invalid 03-25-2017 - [facility] Surgical Interpretation 03-25-2017 Asso ciates Code (13004) fecal occult- tubes sent home (08808) Ordered By: Tia Webster on 2017-03-25 Hemoglobin.gastrointestinal Ql negative Normal 03-25-2017 [facility] (St) Internal M edicine (09860) cbc-complete blood cnt no diff Ordered By: Bag Grader on 2017-03-25 Erythrocyte distribution 14.3 11.6-14.6 % Normal 03-25 [facility] Internal width Ratio (RBC) Me dicine (98169) Comment: PSA IS FOR LINA SARAVIA I S FOR [facility] [address] [place], [address] Hematocrit Volume Fraction 44.4 40-54 % Normal [facility] Internal (Bld) Medicine ( 37242) Comment: PSA IS FOR LINA SARAVIA I S FOR [facility] [address] [place], [address] Hemoglobin (HGB) 14.9 13.0-16.5 g/dL Normal 03-25-2017 [facility] Surgical [facility] (50746) Comment: PSA IS FOR LINA SARAVIA I S FOR [facility] [address] [place], [address] MCH Entitic mass (RBC) 28.0 27.0-32.0 pg Normal 017 [facility] Medicine ( 42499) Comment: PSA IS FOR LINA SARAVIA I S FOR [facility] [address] [place], [place], [id number] MCHC Auto mass conc 33.6 32-36 {g/gl} Normal 03-25-2017 [facility] Internal (RBC) Medicine ( 03549) MCHC mass conc (RBC) 33.6 32-36 {g/gl} Normal 7 [facility] Medicine ( 05631) Comment: PSA IS FOR DR CRUZ, LINA I S FOR [facility] [address] [place], [address] MCV Entitic volume (RBC) 83.3 80-94 fL Normal 03-25 [facility] Internal Medicine ( 99195) Comment: PSA IS FOR DR CRUZ, LINA I S FOR [facility] [address] [place], [place], [phone](111) Platelet mean volume 10.6 6.2-12.0 fL Normal 7 [facility] Internal Auto Entitic volume Medicine (57622) (Bld) Platelet mean volume 10.6 6.2-12.0 fL Normal 7 [facility] Internal Entitic volume (Bld) Medicine (75823) Comment: PSA IS FOR LINA SARAVIA I S FOR [facility] [address] [place], [place], [id number](733) Platelets #/vol (Bld) 220 150-450 K/mm3 Normal 03-25-20 17 [facility] Medicine ( 94188) Comment: PSA IS FOR DR CRUZ, LINA I S FOR [facility] [address] [place], [address]( Platelets Auto #/vol 220 150-450 K/mm3 Normal 7 [facility] Internal (Bld) Medicine ( 52287) RBC #/vol (Bld) 5.33 4.6-6.2 {M/mm3} Normal 03-25-2017 [facility] prehensive Internal Medicine ( 09789) Comment: PSA IS FOR LINA SARAVIA I S FOR [facility] [address] [place], [address] RBC Auto #/vol 5.33 4.6-6.2 {M/mm3} Normal 03-25-2017 [facility] rehensive Internal (Bld) Medicine ( 35740) RDW SD 43.2 35.1-43.9 fL Normal 03-25-2017 [facility] Internal Medicine ( 78311) WBC #/vol (Bld) 6.1 4.4-11.0 K/mm3 Normal 03-25-2017 Com prehensive Internal Medicine ( 45886) Comment: PSA IS FOR DR CRUZ, REST I S FOR PAT TESTINGLouis [facility] [address] [place], [address] 43.2 35.1-43.9 fL Normal 03-25-2017 [facility] Internal Medicine (36737) Comment: PSA IS FOR DR CRUZ, REST I S FOR [facility] TESTINGLouis [facility] [address] [place], [address] basic metabolic profile (bmp) Ordered By: Bag Grader on 2017-03-25 Basic metabolic 2000 140 136-145 mmol/L Normal 7 [facility] Internal panel Medicine ( 62936) Comment: PSA IS FOR DR CRUZ, REST I S FOR [facility] TESTINGLouis [facility] [address] [place], [address] Basic metabolic 2000 0.80 0.70-1.30 mg/dL Normal 7 [facility] Internal panel Medicine ( 48402) Comment: The validity of the calculat ed GFR AND GFRAA in patients over70 years has not been determined. Clinica l correlation isessential. PSA IS FOR DR CRUZ, REST I S FOR PAT TESTINGLouis [facility] [address] [place], [address] Basic metabolic 2000 106 98-107 mmol/L Normal 7 [facility] Internal panel Medicine ( 64929) Comment: PSA IS FOR DR CRUZ, REST I S FOR [facility] TESTINGLouis [facility] [address] [place], [address] Basic metabolic 2000 128 mL/min Normal 7 [facility] Internal panel Medicine ( 73679) Comment: GFR Calc PSA IS FOR LINA SARAVIA I S FOR [facility] TESTINGLouis [facility] [address] [place], [address] Basic metabolic 2000 106 mL/min Normal 7 [facility] Internal panel Medicine ( 53953) Comment: Non- GFR Arti c PSA IS FOR LINA SARAVIA I S FOR PAT TESTINGLouis [facility] [address] [place], [address] Basic metabolic 2000 82 70-110 mg/dL Normal 7 [facility] Internal panel Medicine ( 13683) Comment: PSA IS FOR LINA SARAVIA I S FOR [facility] TESTINGLouis [facility] [address] [place], [address] Basic metabolic 2000 27.0 21.0-32.0 mmol/L Normal 7 [facility] Internal panel Medicine ( 81504) Comment: PSA IS FOR LINA SARAVIA I S FOR [facility] [address] [place], [address] Basic metabolic 2000 4.3 3.5-5.1 mmol/L Normal 7 [facility] Internal panel Medicine ( 16858) Comment: PSA IS FOR LINA SARAVIA I S FOR [facility] TESTINGLouis [facility] [address] [place], [address] Basic metabolic 2000 8.7 8.5-10.1 mg/dL Normal 7 [facility] Internal panel Medicine ( 16297) Comment: PSA IS FOR LINA SARAVIA I S FOR [facility] [address] [place], [address] Basic metabolic 2000 panel 7 5-15 1 Normal [facility] Medicine (97933) Comment: PSA IS FOR LINA SARAVIA I S FOR [facility] TESTINGLouis [facility] [address] [place], [address] Basic metabolic 2000 9 7-18 mg/dL Normal 7 [facility] Internal panel Medicine ( 57667) Comment: PSA IS FOR DR CRUZ, REST I S FOR [facility] [address] [place], [place], [id number] Basic metabolic 2000 11.3 10-20 {RATIO} Normal 7 [facility] Internal panel Medicine ( 50924) Comment: PSA IS FOR DR CRUZ, REST I S FOR [facility] [address] [place], [place], [id number] office visit on 01-20-24 Documentation of Done Invalid 03-07-2017 - [facility] Surgical current medications Interpretation Code 03-07-2017 [facility] (procedure) (98291) Fall risk No Invalid 03-07-2017 [facility] Lavinia gical assessment Interpretation Code 7 [facility] (32354) Tobacco smoking Never Invalid 03-07-2017 - [facility] Surgical status NHIS Interpretation Code 03-07-20 17 [facility] (75955) Tobacco use HS Former Invalid 03-07-2017 [facility] Surgical smoker Interpretation Code 03-07-2017 [facility] (56547) serum creatinine and gfr Ordered By: Bag Grader on 2016-04-03 Creatinine mass conc 0.96 0.70-1.30 mg/dL Normal 6 [facility] Medicine ( 18647) Comment: The validity of the calculat ed GFR AND GFRAA in patients over70 years has not been determined. Clinica l correlation isessential. [facility] [address] [place], [place], [id number] EST GFR - AA 104 mL/min Normal 04-03-2016 Compre hensive Internal Medicine (17092) Comment: GFR Calc GFR/1.73 sq M predicted 86 mL/min Normal 2015 [facility] Internal among non-blacks MDRD vol Medicine (43109) rate/area (S/P/Bld) Comment: Non- GFR Arti c [facility] [address] [place], [place], [address] 104 mL/min Normal 04-03-2016 [facility] Internal Medicine (11015) Comment: GFR Calc [facility] L [address] [place], [place], [address] bun Ordered By: [employer] Instructor on 2016-04-03 Urea nitrogen mass conc 17 7-18 mg/dL Normal 2015 [facility] Internal Medicine ( 44713) Comment: [facility] [address] [place], [address] fecal occult blood , office (95984) Ordered By: Dano Montemayor on 2016-03-30 Hemoglobin.gastrointestinal Ql negative Normal 03-30-2016 [facility] () Internal M edicine (75274) psa,total- diagnostic Ordered By: Bag Grader on 2015-04-05 PSA, DIAGNOSTIC 0.76 0.0-4.0 ng/mL Normal 04-05-2015 [facility] prehensive Internal Medicine (82914) Comment: This test was performed usin g the TPSA assay method for theDimension chemistry system. Values obt ained with differentassay methods cannot be used interchangably.When changing PSA assays in the course of monitoring apatient, additional sequent ial testing should be carriedout to confirm baseline values. 0.76 0.0-4.0 ng/mL Normal 04-05-2015 [facility] Internal Medicine (24066) Comment: This test was performed usin g the TPSA assay method for theDimension chemistry system. Values obt ained with differentassay methods cannot be used interchangably.When changing PSA assays in the course of monitoring apatient, additional sequent ial testing should be carriedout to confirm baseline values. Test performed at:[facility] [address] [place] [phone] basic metabolic profile (bmp) Ordered By: Bag Grader on 2015-04-05 Basic metabolic 2000 142 136-145 mmol/L Normal 5 [facility] Internal panel Medicine ( 00633) Comment: Test performed at:[facility] [address] [place] [phone] Basic metabolic 2000 19 7-18 mg/dL Abnormal 5 [facility] Internal panel Medicine ( 17456) Comment: Test performed at:[facility] [address] [place], [place] [phone] Basic metabolic 2000 105 mL/min Normal 5 [facility] Internal panel Medicine ( 73011) Comment: Test performed at:[facility] [address] [place] [phone] Basic metabolic 2000 0.81 0.70-1.30 mg/dL Normal 5 [facility] Internal panel Medicine ( 74825) Comment: The validity of the calculat ed GFR AND GFRAA in patients over70 years has not been determined. Clinica l correlation isessential. Test performed at:[facility] [address] [place] [phone] Basic metabolic 2000 75 70-110 mg/dL Normal 5 [facility] Internal panel Medicine ( 17580) Comment: Test performed at:[facility] [address] [place], [place] [phone] Basic metabolic 2000 127 mL/min Normal 5 [facility] Internal panel Medicine ( 43412) Comment: Test performed at:[facility] [address] [place] [phone] Basic metabolic 2000 3.8 3.5-5.1 mmol/L Normal 5 [facility] Internal panel Medicine ( 96071) Comment: Test performed at:[facility] [address] [place] [phone] Basic metabolic 2000 104 98-107 mmol/L Normal 5 [facility] Internal panel Medicine ( 08689) Comment: Test performed at:[facility] [address] [place], [place] [phone] Basic metabolic 2000 23.5 10-20 {RATIO} Abnormal 5 [facility] Internal panel Medicine ( 10730) Comment: Test performed at:[facility] [address] [place] [phone] Basic metabolic 2000 8.8 8.5-10.1 mg/dL Normal 5 [facility] Internal [facility] Medicine ( 06985) Comment: Test performed at:[facility] [address] [place], [place] [phone] Basic metabolic 2000 30.0 21.0-32.0 mmol/L Normal 5 [facility] Internal panel Medicine ( 97405) Comment: Test performed at:[facility] [address] [place], [place] [phone] Basic metabolic 2000 panel 8 5-15 1 Normal [facility] Internal Medicine (69887) Comment: Test performed at:[facility] [address] [place], [place] [phone] psa (prostate specific antigen) (v76.44 ) Ordered By: Bag Grader on 2013-05-26 Prostate specific Ag 0.6 0.0-4.0 ng/mL Normal 3 [facility] Internal [facility] ( 95369) Comment: Estefania ECLIA methodology. .Ac cording to the [place] [employer], Serum PSA shoulddecrease and remain at undetectable levels after radicalprostatectomy. The AU A defines biochemical recurrence as an initialPSA value 0.2 ng/mL o r greater followed by a subsequent confirmatoryPSA value 0.2 ng /mL or greater.Values obtained with different assay methods or kits cannot be usedinterchangeably. Results cannot be interpreted as absolute evid enceof the presence or absence of malignant disease. PATIENT NOT FASTINGPERFORMED BY: [facility] Mhspiv6052 [facility] [id number] Information: [id number] fecal occult- tubes sent home (74062) Ordered By: Raeann Portillo on 2013-05-26 Hemoglobin.gastrointestinal Ql negative Normal 05-26-2013 [facility] () Internal M edicine (40782) shoulder,min 2 views Ordered By: Bag Grader on 2012-08-14 See Note Normal 08-14-2012 [facility] Internal Medicine (51799) Comment: PROCEDURE: X-RAY - LEFT SHOU LDER REASON FOR EXAM: Male, 51 years old. Shoulder pain. TECHNIQUE: Fo ur views of the shoulder. COMPARISON: None. FINDINGS:Normal glenohumeral articulation. Normal acromioclavicular joint.Normalacromion. Normal humeral head and visualized proximal humerus. Normal visualizedscapula. Th ere is no demonstrated soft tissue abnormality. Normal visualized pulmonary apex. IMPRESSION:Normal x-ray examination of the shoulder. Signed:Maverick lozano M.D.August 14, 2012 at 3:40:57 PM [id number] y Signed GP/GP If you are the referring physician and would like to consult with theradiologist who provided this interpretation, please marcela Malik M.D. at [phone]. If this radiologist is unavaila robbin, youwill be directed to another radiologist to assist. If you are a radames ent with a question regarding this report, pleasecontactyour referring physician directly. Professional Interpretation Provided By: [facility], [facility] ne , These documents contain legally pr otected and confidential healthinformation intended only for the use of the individual or entity namedabove. If you are not the intended recipient, you are hereby notifiedthatany disclosure, copying, distribution, or ot her use of these documents isstrictly prohibited. If you have rece ived this information in error,pleasenotify the sender immediately and arran ge for the return or destructionofthese documents. Dictated on 08/14 1533 by Kate Bell MDribed on 08/14/12 1545 by [employer] ign by Maverick Bell MD on 08/14/12 1546 Sign by: _ Maverick Bell MD dorsal spine,3 views Ordered By: Bag Grader on 2011-05-14 See Note Normal 05-14-2011 [facility] Internal Medicine (33864) Comment: PROCEDURE: X-RAY - THORACIC SPINE REASON FOR EXAM: Male, 50 years old. The patient has back pain. TECHN IQUE: Five views of the thoracic spine were obtained. COMPARISON: None. FINDINGS:Normal visualized thoracic vertebrae. There is multi-level disc sp tiffanie narrowing with endplate spondylosis ofthethoracic spine. Normal kyphosis. Normal visualized soft tissue structures. IMPRESSION:Degen erative changes of the thoracic spine. Dictated on 05/14/111619 by Kate Lucas i, MDribed on 05/15/111233 by ITS IMPORTSign by Summer Bell MD on 05/15/111234 Sign by: Maverick Wing MD PROCEDURE: X-RAY - LUMBAR SP INE REASON FOR EXAM: Male, 50 years old. The patient presents with lowbac kpain. TECHNIQUE: Five views of the lumbar spine were obtained. COMPARISON: N one FINDINGS:Normal lumbar lordosis. There is a minimal levoscoliosis of the lumbarspine. Normal lumbar vertebrae. There is a mild degree of disk space 9 at the L1, L2, L2, L3, and L5, J7nrhhrp. Anterior spondylosis is seen at the L1-L2 level. The soft tissue structures are unremarkable. IMPRESSION :Degenerative changes of the spine, as detailed above. Dictated on 05/14/111619 by Kate Bell MDribed on 05/15/111233 by [employer] ign by Maverick Bell MD on 05/15/11 123 Sign by: _ Maverick Bell MD PROCEDURE: X-RAY - CERVICAL SPINE REASON FOR EXAM: Male, 50 years old. The patient presents with neckpa in. TECHNIQUE: Five views of the cervical spine were obtained. COMPARISON: N one FINDINGS:Normal craniovertebral junction. Normal anterior atlantoaxial articulation. Normal odontoid process. Normal cervical lordosis. Normal ve rtebral bodies and posterior osseouselements. There is a minimal degree of disk space narrowing at the C5-C6 level.Normal visualized intervertebral ne uroforamina. Normal visualized soft tissue structures. IMPRESSION:There is a mild degree of space narrowing at the C5-6 level. Dictated on 05/14/11 1620 by Dot Bell MDscribed on 05/15/11 1231 by [employer] ign by Maverick Bell MD on 05/15/11 1232 Sign by: _ Maverick Bell MD white blood cells (wbc), stool Ordered By: Bag Grader on 2011-01-30 WBC LM Ql (St) Final report Normal 01-30-2011 [facility] (87478) Comment: Reference Range: None Seen PERFORMED BY: [employer] Entouragerp Dub [id number] [facility] [id number] BY: [employer] [id number] WBC LM Ql (St) NWBC Normal 01-30-2011 [facility] Internal Medicine (15683) Comment: No white blood cells seen. PERFORMED BY: [employer] Dub [id number] [facility] [id number] BY: [employer] [id number] stool culture Ordere d By: Bag Grader on 2011-01-30 Bacteria identified Cx Nom NCI Normal [facility] Medicine (Unsp spec) (88268) Comment: No Campylobacter species iso lated. PERFORMED BY: [employer] Dub [id number] [facility] [id number] BY: [employer] [id number] Information: SRC:ST Bacteria identified Cx Nom NSS Normal [facility] Medicine (Unsp spec) (43393) Comment: No Salmonella or Shigella re covered. PERFORMED BY: [employer] Ent[employer] Dub [id number] [facility] [id number] BY: [address] [id number] Information: SRC:ST Campylobacter sp Final report Normal 01-30-2011 [facility] identified Org specific Medicine (76820) cx Nom (St) Comment: PERFORMED BY: JOSESITO [facility] [id number] [facility] [id number] BY: [address] [id number] Information: SRC:ST E. coli shiga-like toxin Negative Normal 01-30 [facility] IA Ql (St) Medicine (81624) Comment: PERFORMED BY: CB [facility] dzb7625 [address] [id number] BY: [address] [id number] Information: SRC:ST Salmonella and Shigella Final report Normal [facility] sp identified Org Me dicine (50176) specific cx Nom (St) Comment: PERFORMED BY: [facility] rng5608 [facility] [id number] BY: [address] [id number] Information: SRC:ST ova + parasite exam Ordered By: Bag Grader on 2011-01-30 Ova and parasites identified NOCP Normal 0 01-30-2011 [facility] Concentration Nom (St) Medicine (41372) Comment: No ova, cysts, or parasites seen. PERFORMED BY: JOSESITO [facility] [id number] [facility] [id number] BY: [address] [id number] Ova and parasites Final report Normal 1 [facility] identified LM Nom ([facility] (47131) spec) Comment: These results were obtained using wet preparation(s) and trichromestained smear. This test does not in clude testing for Cryptosporidiumparvum, Cyclospora, or Microsporidia . PERFORMED BY: JOSESITO [facility] dim6955 [facility] [id number] BY: [address] [id number] occult blood, fecal, ia Ordered By: Bag Grader on 2011-01-30 Lower GI hemoglobin IA Ql Negative Normal 01-12 [facility] (St) Medicine ( 30214) Comment: PERFORMED BY: JOSESITO [facility] shl2073 Braga RoadDublin [place] [id number] BY: [facility] [id number] c difficile toxins a+b, eia Ordered By: Bag Grader on 2011-01-30 C. difficile toxin A+B IA Negative Normal 01-12 [facility] (St) Medicine ( 73051) Comment: PERFORMED BY: CB [facility] lsd7194 [address] RoadDublin [place] [id number] BY: [facility] [id number] office visit on Colonoscopy Normal Invalid 04-24-2010 - [facility] S urgical (procedure) Interpretation Code 04-24-20 10 [facility] (59901) Protein mass conc Normal Invalid 04-24-2010 - [facility] Surgical Interpretation Code 04-24-2010 [facility] (76514) ptt (activated partial thromboplastin ti me) (58829) Ordered By: Bag Grader on 2010-04-06 aPTT Coag time (Bld) 30 24-33 {sec} Normal 0 [facility] Medicine (17641) Comment: This test has not been valid ated for monitoring unfractionated heparintherapy. aPTT-based t herapeutic ranges for unfractionated heparintherapy have not been established. For general guidelines onHeparin monitoring, refer to the Lab about.me Directory of Services. aPTT Coag time (PPP) 30 24-33 {sec} Normal 0 [facility] Medicine (51598) Comment: This test has not been valid ated for monitoring unfractionated heparintherapy. aPTT-based t herapeutic ranges for unfractionated heparintherapy have not been established. For general guidelines onHeparin monitoring, refer to the Lab about.me Directory of Services. PATIENT NOT FASTINGPERFORMED BY: CB [facility] Okenwz0447 [address]aga RoadDublin [place] [id number] pt (prothrobim time) (74158) Ordered By: Bag Grader on 2010-04-06 INR Coag RelTime (PPP) 1.1 0.8-1.2 1 Normal 010 [facility] Internal Medicine ( 28093) Comment: Reference interval is for no n-anticoagulated patients..Suggested INR therapeutic range for Vitami n Kantagonist therapy:Standard Dose (moderate intensitytherapeutic range): 2.0 - 3.0Higher intensity therapeutic range 2.5 - 3.5 PATIENT NOT FASTINGPERFORMED BY: CB [facility] Gmqekh5503 [address]aga RoadDublin [place] [id number] Prothrombin time (PT) 11.1 8.7-11.5 {sec} Normal 04-06-20 10 [facility] Internal Coag time (PPP) [facility] (31452) Comment: PATIENT NOT FASTINGPERFORMED BY: CB [facility] Hdpnly5338 [address] RoadDublin [place] [id number] metabolic panel, comprehensive (98651) Ordered By: Bag Grader on 2010-04-06 Albumin mass conc 4.2 3.5-5.5 g/dL Normal 04-06-2010 C omprehensive Internal Medicine (74197) Comment: PATIENT NOT FASTINGPERFORMED BY: CB [facility] Hucosk8863 [address] RoadDublin [place] [id number] Albumin/Globulin mass ratio 1.8 1.1-2.5 1 Normal [facility] Internal Medicine ( 30689) Comment: PATIENT NOT FASTINGPERFORMED BY: CB [facility] Pvpmls4066 [address] RoadDublin [place] [id number] ALP enzyme act/vol 88 25-150 [iU]/L Normal 04-06-2010 [facility] Medicine (12864) Comment: PATIENT NOT FASTINGPERFORMED BY: CB [facility] Sdoxwh9433 [address] RoadDublin [place] [id number] ALT enzyme act/vol 32 0-55 [iU]/L Normal 04-06-2010 [facility] Internal Medicine (46210) Comment: PATIENT NOT FASTINGPERFORMED BY: CB [facility] Nqbqby8794 [address] RoadDublin [place] [id number] AST enzyme act/vol 25 0-40 [iU]/L Normal 04-06-2010 [facility] Medicine (59473) Comment: PATIENT NOT FASTINGPERFORMED BY: CB [facility] Lpdeno8742 [address] RoadDublin [place] [id number] Bilirubin mass conc 1.3 0.0-1.2 mg/dL Abnormal 04-06-2010 [facility] Medicine ( 45556) Comment: PATIENT NOT FASTINGPERFORMED BY: CB [facility] Rxtyln8582 [address] RoadDublin [place] [id number] Calcium mass conc 8.9 8.7-10.2 mg/dL Normal 04-06-2010 [facility] ( 47077) Comment: PATIENT NOT FASTINGPERFORMED BY: CB [facility] Nhtdhx7848 [address] RoadDublin [place] [id number] Chloride molar conc 105 97-108 mmol/L Normal 04-06-2010 [facility] Internal Medicine ( 34074) Comment: PATIENT NOT FASTINGPERFORMED BY: CB [facility] Uiapju5615 [address] RoadDublin [place] [id number] CO2 molar conc 21 20-32 mmol/L Normal 04-06-2010 [facility] Internal Medicine (00161) Comment: PATIENT NOT FASTINGPERFORMED BY: CB [facility] Rikvjv2525 [address] RoadDublin [place] [id number] Creatinine mass conc 0.96 0.76-1.27 mg/dL Normal 0 [facility] Internal Medicine ( 73241) Comment: PATIENT NOT FASTINGPERFORMED BY: CB [facility] Nkmlhe9303 Brga[address] RoadDublin [place] [id number] GFR/1.73 sq M >59 mL/min/{1.73_m2} Normal 0 [facility] predicted among [facility] (88762) blacks MDRD vol rate/area (S/P/Bld) Comment: Note: Persistent reduction f or 3 months or more in an eGFR<60 mL/min/1.73 m2 defines CKD. Patients with e GFR values>/=60 mL/min/1.73 m2 may also have CKD if evidence of persistentpro teinuria is present. Additional information may be found [email or web address]. PATIENT NOT FASTINGPERFORMED BY: CB [facility] Qmrmby5523 [address] RoadDublin [place] [id number] GFR/1.73 sq >59 mL/min/{1.73_m2} Normal 04-06-2010 [facility] M.predicted MDRD Med icine (02168) (S/P/Bld) [Vol rate/Area] Comment: PATIENT NOT FASTINGPERFORMED BY: JOSESITO Mejia6370 [facility] [id number] GFR/1.73 sq >59 mL/min/{1.73_m2} Normal 04-06-2010 [facility] M.predicted MDRD vol Medicine (70088) rate/area Comment: PATIENT NOT FASTINGPERFORMED BY: JOSESITO LabMarta MeiClxsnr7870 [facility] [id number] Globulin Calculated mass 2.3 1.5-4.5 g/dL Normal 04-06 [facility] conc (S) Medicine ( 36893) Globulin mass conc (S) 2.3 1.5-4.5 g/dL Normal 010 [facility] Medicine ( 38181) Comment: PATIENT NOT FASTINGPERFORMED BY: JOSESITO LabMarta MeiJswzqy5297 [facility] [id number] Glucose mass conc 89 65-99 mg/dL Normal 04-06-2010 [facility] Internal Medicine (18680) Comment: PATIENT NOT FASTINGPERFORMED BY: JOSESITO LabMarta Mejia6370 [facility] [id number] Potassium molar conc 4.3 3.5-5.2 mmol/L Normal 0 [facility] Medicine ( 91026) Comment: PATIENT NOT FASTINGPERFORMED BY: JOSESITO [facility] Ajftnh8352 [facility] [id number] Protein mass conc 6.5 6.0-8.5 g/dL Normal 04-06-2010 [facility] Medicine (25288) Comment: PATIENT NOT FASTINGPERFORMED BY: JOSESITO [facility] Adxxdj9654 [facility] [id number] Sodium molar conc 141 135-145 mmol/L Normal 04-06-2010 [facility] Medicine ( 70991) Comment: PATIENT NOT FASTINGPERFORMED BY: JOSESITO [facility] Uotazm6387 [facility] [id number] Urea nitrogen mass conc 13 5-26 mg/dL Normal 2009 [facility] Internal Medicine ( 31708) Comment: PATIENT NOT FASTINGPERFORMED BY: JOSESITO Mejia6370 [facility] [id number] Urea nitrogen/Creatinine mass 14 8-27 1 Normal 04-06-2010 [facility] Internal [facility] Medicine ( 72503) Comment: PATIENT NOT FASTINGPERFORMED BY: JOSESITO Coy Lxhfhd7391 [facility] [id number] cbc with manual diff (71427) Ordered By: Bag Grader on 2010-04-06 Basophils #/vol 0.1 0.0-0.2 {x10E3/uL} Normal 04-06-2010 Co mprehensive Internal (Bld) Medicine ( 19799) Comment: PATIENT NOT FASTINGPERFORMED BY: JOSESITO Coy Ujrbci3059 [facility] [id number] Information: [id number] Basophils Auto #/vol 0.1 0.0-0.2 {x10E3/uL} Normal 04-06-20 10 [facility] (d) Medicine ( 38558) Basophils/100 WBC 1 0-3 % Normal 04-06-2010 [facility] o[facility]ive Internal (d) Medicine ( 06806) Comment: PATIENT NOT FASTINGPERFORMED BY: JOSESITO Meilin6370 [facility] [id number] Information: [id number] Basophils/100 WBC Auto 1 0-3 % Normal 010 [facility] (d) Medicine ( 83680) Eosinophils #/vol (Bld) 0.3 0.0-0.4 {x10E3/uL} Normal 04-06 [facility] Medicine ( 43274) Comment: PATIENT NOT FASTINGPERFORMED BY: JOSESITO BhatAsc[facility] Hospital6370 [facility] [id number] Information: [id number] Eosinophils Auto 0.3 0.0-0.4 {x10E3/uL} Normal 04-06-2010 [facility]ive Internal #/vol (Bld) Medicine (15343) Eosinophils/100 WBC 6 0-7 % Normal 04-06-2010 [facility] (Bld) Medicine ( 77858) Comment: PATIENT NOT FASTINGPERFORMED BY: JOSESITO [facility] Gpiglu4515 [facility] [id number] Information: [id number] Eosinophils/100 WBC Auto 6 0-7 % Normal 04-06 [facility] (Bld) Medicine ( 81459) Erythrocyte distribution 14.2 11.7-15.0 % Normal 04-06 [facility] width Auto Ratio (RBC) Medicine (26989) Erythrocyte distribution 14.2 11.7-15.0 % Normal 04-06 [facility] width Ratio (RBC) Ri dicine (69929) Comment: PATIENT NOT FASTINGPERFORMED BY: JOSESITO [facility] Hhddcs5599 [facility] [id number] Information: [id number] Hematocrit Auto Volume 44.1 36.0-50.0 % Normal 010 [facility] Fraction (Bld) Medic ine (62220) Hematocrit Volume 44.1 36.0-50.0 % Normal 04-06-2010 C o[facility]rehensive Internal Fraction (Bld) Medic ine (98516) Comment: PATIENT NOT FASTINGPERFORMED BY: CB [facility] Xdzzyw4315 [facility] [id number] Information: [id number] Hemoglobin mass conc 15.1 12.5-17.0 g/dL Normal 0 [facility] (Bld) Medicine ( 27549) Comment: PATIENT NOT FASTINGPERFORMED BY: CB [facility] Zbowbs3263 [facility] [id number] Information: [id number] Immature granulocytes 0.0 0.0-0.1 {x10E3/uL} Normal 010 [facility] #/vol (Bld) Medicine (08031) Comment: PATIENT NOT FASTINGPERFORMED BY: CB [facility] Sjkbip0906 [facility] [id number] Information: [id number] Immature granulocytes/100 WBC 0 0-1 % Normal 04-06-2010 [facility] (Bld) Medicine ( 31962) Comment: PATIENT NOT FASTINGPERFORMED BY: OJSESITO [facility]6370 [facility] [id number] Information: [id number] Lymphocytes #/vol 1.2 0.7-4.5 {x10E3/uL} Normal 04-06-2010 [facility] (d) Medicine ( 77281) Comment: PATIENT NOT FASTINGPERFORMED BY: LabAnthony Ville [id number] [facility] [id number] Information: [id number] Lymphocytes Auto 1.2 0.7-4.5 {x10E3/uL} Normal 04-06-2010 C omprehensive Internal #/vol (Bld) Medicine (76845) Lymphocytes/100 WBC 28 14-46 % Normal 04-06-2010 [facility] (d) Medicine ( 63658) Comment: PATIENT NOT FASTINGPERFORMED BY: [place] 5923270 [facility] [id number] Information: [id number] Lymphocytes/100 WBC Auto 28 14-46 % Normal 04-06 [facility] (Bld) Medicine ( 53407) MCH Auto Entitic mass 28.1 27.0-34.0 pg Normal 04-06-20 10 [facility] (RBC) Medicine ( 03631) MCH Entitic mass (RBC) 28.1 27.0-34.0 pg Normal 010 [facility] Medicine ( 01802) Comment: PATIENT NOT FASTINGPERFORMED BY: [facility]6370 [facility] [id number] Information: [id number] MCHC Auto mass conc 34.2 32.0-36.0 g/dL Normal 04-06-2010 [facility] (RBC) Medicine ( 99133) MCHC mass conc (RBC) 34.2 32.0-36.0 g/dL Normal 0 [facility] Medicine ( 00761) Comment: PATIENT NOT FASTINGPERFORMED BY: [facility]6370 [facility] [id number] Information: [id number] MCV Auto Entitic volume 82 80-98 fL Normal 2009 [facility] (RBC) Medicine ( 75913) MCV Entitic volume (RBC) 82 80-98 fL Normal 04-06 [facility] Medicine ( 46054) Comment: PATIENT NOT FASTINGPERFORMED BY: JOSESITO LabConate MejiaIsdxpu2461 [facility] [id number] Information: [id number] Monocytes #/vol 0.4 0.1-1.0 {x10E3/uL} Normal 04-06-2010 Co [facility] medicineehensive Internal (Bld) Medicine ( 40633) Comment: PATIENT NOT FASTINGPERFORMED BY: CB [facility]CoCap[facility])Hbdfwy7906 [facility] [id number] Information: [id number] Monocytes Auto #/vol 0.4 0.1-1.0 {x10E3/uL} Normal 04-06-20 10 [facility] (d) Medicine ( 15932) Monocytes/100 WBC 8 4-13 % Normal 04-06-2010 C omprehensive Internal (d) Medicine ( 32595) Comment: PATIENT NOT FASTINGPERFORMED BY: LabCoMarcus [place] 1747270 [facility] [id number] Information: [id number] Monocytes/100 WBC Auto 8 4-13 % Normal 010 [facility] (d) Medicine ( 81377) Neutrophils #/vol (Bld) 2.4 1.8-7.8 {x10E3/uL} Normal 04-06 [facility] Medicine ( 62948) Comment: PATIENT NOT FASTINGPERFORMED BY: CB [facility] Nzgeeo9040 [facility] [id number] Information: [id number] Neutrophils Auto 2.4 1.8-7.8 {x10E3/uL} Normal 04-06-2010 [facility]rehensive Internal #/vol (Bld) Medicine (67187) Neutrophils/100 WBC 57 40-74 % Normal 04-06-2010 [facility] (d) Medicine ( 97723) Comment: PATIENT NOT FASTINGPERFORMED BY: CB [facility] Lcqojn6464 [facility] [id number] Information: [id number] Neutrophils/100 WBC Auto 57 40-74 % Normal 04-06 Comprehensive (Bld) Internal edicine (68508) Platelets #/vol (Bld) 215 140-415 {x10E3/uL} Normal 010 [facility] Internal edicine (85909) Comment: PATIENT NOT FASTINGPERFORMED BY: RenrenmoneyCapital [facility])Qotvhd6048 [facility] [id number] Information: [id number] Platelets Auto 215 140-415 {x10E3/uL} Normal 04-06-2010 Com prehensive Internal #/vol (Bld) Medicine (80063) RBC #/vol (d) 5.38 4.10-5.60 {x10E6/uL} Normal 04-06-2010 Co mprehensive Internal Medicine ( 81801) Comment: PATIENT NOT FASTINGPERFORMED BY: [facility]renmoneyCap[facility]Uxbiyj0801 [facility] [id number] Information: [id number] RBC Auto #/vol 5.38 4.10-5.60 {x10E6/uL} Normal 04-06-2010 Com prehensive Internal (Bld) Medicine ( 13287) WBC #/vol (Bld) 4.4 4.0-10.5 {x10E3/uL} Normal 04-06-2010 [facility] medicine[facility] Internal Medicine ( 50283) Comment: PATIENT NOT FASTINGPERFORMED BY: [facility]6370 [facility] [id number] Information: [id number] WBC Auto #/vol 4.4 4.0-10.5 {x10E3/uL} Normal 04-06-2010 Com prehensive Internal (Bld) Medicine ( 73819) urinalysis, office (39255) Ordered By: Annetta Cleary on 2008-10-07 Bilirubin Ql (U) Negative Normal 10-07-2008 Co mprehensive Internal Medicine (00723) Comment: done BC Glucose Test strip mass Negative Normal 2008 [facility] conc (U) Medicine ( 89319) Comment: done BC Hemoglobin Ql (U) Negative Normal 10-07-2008 [facility] Medicine (24521) Comment: done BC Hemoglobin Test strip Ql Negative Normal 10-07 [facility] Internal (U) Medicine ( 66969) Ketones Ql (U) Negative Normal 10-07-2008 Comp rehensive Internal Medicine ( 24498) Comment: done BC Leukocyte esterase Test Trace Normal 2008 [facility] Internal strip Ql (U) Medicin e (03588) Comment: done BC Nitrite Ql (U) Negative Normal 10-07-2008 [facility] (33011) Comment: done BC Nitrite Test strip Ql Negative Normal 10-08-19 09 [facility] Internal (U) Medicine ( 26900) pH (U) 6.0 1 Normal 10-07-2008 [facility] Internal Medicine ( 59877) Comment: done BC pH Test strip (U) 6.0 1 Normal 10-07-2008 C [facility] Internal Medicine (88491) Protein Ql (U) Negative Normal 10-07-2008 [facility] Internal Medicine (47192) Comment: done BC Protein Test strip Ql (U) Negative Normal 09-13 [facility] Internal Medicine ( 11723) Specific gravity Relative 1.010 1 Normal 09-13 [facility] Internal Density (U) Medicine (56010) Comment: done BC Urobilinogen mass/time (24H Normal Normal [facility] Internal U) Medicine ( 66836) Comment: done BC urinalysis, office (96436) Ordered By: Annetta Cleary on 2008-09-09 Bilirubin Ql (U) Negative Normal 09-09-2008 Co mprensive Internal Medicine ( 94180) Glucose Test strip mass Negative Normal 2008 [facility] conc (U) Medicine ( 90116) Hemoglobin Ql (U) Negative Normal 09-09-2008 [facility] ( 86678) Hemoglobin Test strip Ql Negative Normal 09-09 [facility] Internal (U) Medicine ( 57118) Ketones Ql (U) Negative Normal 09-09-2008 [facility] ( 82715) Leukocyte esterase Test Negative Normal 2008 [facility] Internal strip Ql (U) Medicin e (25711) Nitrite Ql (U) Negative Normal 09-09-2008 Comp rehensive Internal Medicine ( 04261) Nitrite Test strip Ql (U) Negative Normal 08-16 [facility] Internal Medicine ( 65235) pH (U) 6.5 1 Normal 09-09-2008 [facility] ( 66745) pH Test strip (U) 6.5 1 Normal 09-09-2008 C omprehensive Internal Medicine ( 98198) Protein Ql (U) Negative Normal 09-09-2008 [facility] Internal Medicine ( 94201) Protein Test strip Ql (U) Negative Normal 08-16 [facility] Internal Medicine ( 98377) Specific gravity Relative 1.000 1 Normal 08-16 [facility] Density (U) Medicine (68791) Urobilinogen mass/time (24H Normal Normal [facility] Internal ) Medicine ( 18334) kidney (hp) Ordered By: Bag Grader on 2008-08-30 See Note Normal 08-30-2008 [facility] Internal [facility] (67553) Comment: Exam Number: [id number] RENAL ULTRASOUND. HISTORYUrinary tract infection/proteinuria. FINDI NGSHigh resolution real time sector images were obtained. Both kidneysare no rmal in size. The right kidney measures 11.5 x 5.7 x 5.9 cm. The left kidne y measures 12.8 x 7 x 7.3 cm. there is minimalprominence of the rig ht renal pelvis without dilatation of calices.This is most likely to represent an extrarenal pelvis as a normalvariant. In the region of the renal sinus echoes of the left kidney,there are a few scatt ered foci of greater echogenicity. Thesefindings raise the possibility of kris al calculi. There is nohydronephrosis. No solid or cystic mass is identified . IMPRESSION1. There is no hydronephrosis identified. 2. The possibili ty of renal calculi on the left is raised. however, this finding is not definite. 3. The urinary bladder is distended and unremarkable. Reported B y: RYAN ANDRE M.D. urine mary anne culture (carmen col count) (5591 6) Ordered By: Baylee Villanueva on 2008-08-26 Bacteria identified Enterococcus faecalis Normal 08-26-2008 [facility] Internal Cx Nom (U) Medicine (01252) Comment: Greater than 100,000 colony forming units per mLNote: this isolate is vancomycin-susceptible.This information is provided for epidemiologic purposesonly: vancomycin is not among the antibioticsrecommended for therapy of urinary tract infectionsc aused by Enterococcus. PATIENT NOT FASTINGClinical Information: SRC:JABARI GILL [id number] PERFORMED BY: JOSESITO Lababout.me Dlkisg6993 [address] adDublin [place] [id number] Bacteria identified Cx Final report Normal 08-15 [facility] Internal Nom (U) Medicine ( 15169) Comment: PATIENT NOT FASTINGClinical Information: SRC:JABARI GILL [id number] PERFORMED BY: JOSESITO [facility] Rgdiie5327 [address] adDublin [place] [id number] Other Antibiotic susc MIHEAD Normal 08-26-19 09 [facility] Medicine (72947) Comment: S = Susceptible; I = I ntermediate; R = Resistant P = Positive; N = Negative MICS are expresse d in micrograms per mL Antibiotic RSLT#1 RSLT#2 RSLT#3 RSLT#4Ciprofloxacin S Levofloxacin SNitrofurantoin SPenicillin SVancomycin S PATIENT NOT FASTINGClinical Information: SRC:JABARI ADD [id number] PERFORMED BY: JOSESITO Lababout.me Xnwebz8125 [address] adDubFranklin Memorial Hospital [id number] urinalysis, office (27537) Ordered By: Annetta Cleary on 2008-08-26 Bilirubin Ql (U) Negative Normal 08-26-2008 [facility] Internal Medicine ( 74869) Glucose Test strip Negative Normal 08-26-2008 [facility] Internal mass conc (U) Medici ne (12144) Hemoglobin Ql (U) Hemolyzed Large Normal 2008 [facility] Medicine ( 91919) Hemoglobin Test Hemolyzed Large Normal 08-26-19 09 [facility] Internal strip Ql (U) Medicin e (13069) Ketones Ql (U) Small Normal 08-26-2008 Comp rehensive Internal Medicine ( 88188) Leukocyte esterase Large Normal 08-26-2008 [facility] Internal Test strip Ql (U) Me dicine (07806) Nitrite Ql (U) Negative Normal 08-26-2008 Comp rehensive Internal Medicine ( 69566) Nitrite Test strip Negative Normal 08-26-2008 [facility] Internal Ql (U) Medicine ( 05295) pH (U) 6.0 1 Normal 08-26-2008 Comprehen sive Internal Medicine ( 82287) pH Test strip (U) 6.0 1 Normal 08-26-2008 [facility] ( 50103) Protein Ql (U) 300 mg/dL Normal 08-26-2008 Comp rehensive Internal Medicine ( 88828) Protein Test strip 300 mg/dL Normal 08-26-2008 [facility] Internal Ql (U) Medicine ( 25566) Specific gravity 1.025 1 Normal 08-26-2008 Co mprehensive Internal Relative Density (U) Medicine (20622) Comment: > 1.030 Urobilinogen mass/time (24H Normal Normal [facility] Internal U) Medicine ( 73225) psa (prostate specific antigen), screeni ng (73535) Ordered By: Baylee Villanueva on 2008-08-26 Prostate specific Ag 21.6 0.0-4.0 ng/mL Abnormal 9 [facility] Internal [facility] ( 98796) Comment: Estefania ECLIA methodology. .Ac cording to the [place] [employer], PSA should beundetectable af ter radical prostatectomy. A PSA of less than0.5 ng/mL (or undetectable) is n ot likely to be associated withdisease recurrence within five years of treatment.Values obtained with different assay methods or kits cannot be usedinterchangeably. Results cannot be interpreted as absolute evid enceof the presence or absence of malignant disease. PATIENT NOT FASTINGPERFORMED BY: JOSESITO [employer] [id number] [facility] [id number] metabolic panel, basic (88742) Ordered By: Baylee Villanueva on 2008-08-26 Calcium mass conc 9.1 8.5-10.6 mg/dL Normal 08-26-2008 [facility] Internal [facility] ( 44375) Comment: PATIENT NOT FASTINGClinical Information: ADD DRAW FEE [id number] ADD J 44930 PERFORMED BY: JOSESITO [employer] Sigifredo [id number] [facility] [id number] Chloride molar conc 103 97-108 mmol/L Normal 08-26-2008 [facility] Internal [facility] ( 22789) Comment: PATIENT NOT FASTINGClinical Information: ADD DRAW FEE [id number] ADD J 52903 PERFORMED BY: CB [facility] [id number] [facility] [id number] CO2 molar conc 21 20-32 mmol/L Normal 08-26-2008 [facility] (52503) Comment: PATIENT NOT FASTINGClinical Information: ADD DRAW FEE [id number] ADD J 18697 PERFORMED BY: JOSESITO [facility] [id number] [facility] [id number] Creatinine mass conc 1.30 0.76-1.27 mg/dL Abnormal 9 [facility] ( 62093) Comment: PATIENT NOT FASTINGClinical Information: ADD DRAW FEE [id number] ADD J 24012 PERFORMED BY: [facility] [id number] [facility] [id number] GFR/1.73 sq M >59 mL/min/{1.73_m2} Normal 9 [facility] Internal predicted among [facility] cine (06287) blacks MDRD vol rate/area (S/P/Bld) Comment: Note: Persistent reduction f or 3 months or more in an eGFR<60 mL/min/1.73 m2 defines CKD. Patients with e GFR values>/=60 mL/min/1.73 m2 may also have CKD if evidence of persistentpro teinuria is present. Additional information may be found [email or web address]. PATIENT NOT FASTINGClinical Information: ADD DRAW FEE [id number] ADD J 18997 PERFORMED BY: JOSESITO [facility] [id number] [facility] [id number] GFR/1.73 sq M.predicted 59 mL/min/1.73 Abnormal 08-15 [facility] Internal MDRD (S/P/Bld) [Vol Medicine (16973) rate/Area] Comment: PATIENT NOT FASTINGClinical Information: ADD DRAW FEE [id number] ADD J 85036 PERFORMED BY: CB [facility] [id number] [facility] [id number] GFR/1.73 sq M.predicted 59 mL/min/1.73 Abnormal 08-15 [facility] Internal MDRD vol rate/area M edicine (71435) Comment: PATIENT NOT FASTINGClinical Information: ADD DRAW FEE [id number] ADD J 77114 PERFORMED BY: CB [facility] [id number] [facility] [id number] Glucose mass conc 117 65-99 mg/dL Abnormal 08-26-2008 [facility] (73920) Comment: PATIENT NOT FASTINGClinical Information: ADD DRAW FEE [id number] ADD J [id number] PERFORMED BY: CB [facility] [id number] [facility] [id number] Potassium molar conc 4.2 3.5-5.2 mmol/L Normal 9 [facility] ( 89051) Comment: PATIENT NOT FASTINGClinical Information: ADD DRAW FEE [id number] ADD J 21190 PERFORMED BY: CB [facility] [id number] [facility] [id number] Sodium molar conc 140 135-145 mmol/L Normal 08-26-2008 [facility] Internal Medicine ( 79716) Comment: PATIENT NOT FASTINGClinical Information: ADD DRAW FEE [id number] ADD J 51401 PERFORMED BY: CB [facility] [id number] [facility] [id number] Urea nitrogen mass conc 28 5-26 mg/dL Abnormal 2008 [facility] ( 39129) Comment: PATIENT NOT FASTINGClinical Information: ADD DRAW FEE [id number] ADD J 13977 PERFORMED BY: CB [facility] [id number] [facility] [id number] Urea nitrogen/Creatinine mass 22 8-27 1 Normal 08-26-2008 [facility] Internal ratio Medicine ( 77877) Comment: PATIENT NOT FASTINGClinical Information: ADD DRAW FEE [id number] ADD J [id number] PERFORMED BY: [facility] [id number] [facility] [id number] urinalysis, office (43426) Ordered By: Carol Ruiz on 2007-03-20 Bilirubin Ql (U) Negative Normal 03-20-2007 [facility] (32687) Comment: done km Glucose Test strip mass Negative Normal 2006 [facility] Internal conc (U) Medicine ( 39956) Comment: done km Hemoglobin Ql (U) Negative Normal 03-20-2007 [facility] (99580) Comment: done km Hemoglobin Test strip Ql Negative Normal 03-20 [facility] Internal (U) Medicine ( 45248) Ketones Ql (U) Negative Normal 03-20-2007 [facility] rehensive Internal Medicine ( 47135) Comment: done km Leukocyte esterase Test Small Normal 2006 [facility] Internal strip Ql (U) Medicin e (53630) Comment: done km Nitrite Ql (U) Negative Normal 03-20-2007 Comp rehensive Internal Medicine (76052) Comment: done km Nitrite Test strip Ql Negative Normal 03-20-20 07 [facility] Internal (U) Medicine ( 48286) pH (U) 6.5 1 Normal 03-20-2007 [facility] sive Internal Medicine ( 28600) Comment: done km pH Test strip (U) 6.5 1 Normal 03-20-2007 C [facility] (90902) Protein Ql (U) Negative Normal 03-20-2007 [facility] rehensive Internal Medicine (75959) Comment: done km Protein Test strip Ql (U) Negative Normal [facility] Internal Medicine ( 81776) Specific gravity Relative 1.010 1 Normal [facility] Internal Density (U) Medicine (34926) Comment: done km Urobilinogen mass/time (24H Normal Normal [facility] Internal U) Medicine ( 16879) Comment: done km Vital Signs Vital Sign Description Value / Unit Date Location The following section is limited to 5 en tries per type and includes entries from the following time range: 20180922 - 20190515 3. BMI (Body Mass Index) 32.69 kg/m2 [facility]74162[facility] BMI (Body Mass Index) 32.69 kg/m2 03-18-2019 [facility] (42644) BMI (Body Mass Index) 33.91 kg/m2 01-14-2019 [facility] (11010) BMI (Body Mass Index) 32.82 kg/m2 10-13-2018 [facility] (46163) BMI (Body Mass Index) 33.09 kg/m2 09-22-2018 [facility] (96803) Body Temperature 97.2 [degF] 05-27-2019 [facility] nternal Medicine (23264) Body Temperature 97.9 [degF] 03-18-2019 [facility] nternal Medicine (04644) Body Temperature 98.2 [degF] 01-14-2019 [facility] nternal Medicine (62529) Body Temperature 97.2 [degF] 10-13-2018 [facility] nternal Medicine (12245) Body Temperature 97 [degF] 09-22-2018 [facility] I nternal Medicine (13560) Body weight 109.32 kg 05-27-2019 [facility] In ternal Medicine (23417) Body weight 109.32 kg 03-18-2019 [facility] In ternal Medicine (01438) Body weight 113.4 kg 01-14-2019 [facility] In ternal Medicine (83854) Body weight 109.77 kg 10-13-2018 [facility] In ternal Medicine (25597) Body weight 110.68 kg 09-22-2018 [facility] In ternal Medicine (93202) BP Diastolic 80 mm[Hg] 05-27-2019 [facility] In ternal Medicine (38629) BP Diastolic 76 mm[Hg] 03-18-2019 [facility] In ternal Medicine (86875) BP Diastolic 84 mm[Hg] 01-14-2019 [facility] In ternal Medicine (72544) BP Diastolic 80 mm[Hg] 10-13-2018 [facility] In ternal Medicine (94411) BP Diastolic 82 mm[Hg] 09-22-2018 [facility] In ternal Medicine (80020) BP Systolic 118 mm[Hg] 05-27-2019 [facility] In ternal Medicine (24153) BP Systolic 124 mm[Hg] 03-18-2019 [facility] In ternal Medicine (85978) BP Systolic 119 mm[Hg] 01-14-2019 [facility] In ternal Medicine (67988) BP Systolic 118 mm[Hg] 10-13-2018 [facility] In ternal Medicine (86871) BP Systolic 112 mm[Hg] 09-22-2018 [facility] In ternal Medicine (27113) BSA (Body Surface Area) 2.31 m2 05-27-2019 [facility] nsive Internal Medicine (55479) BSA (Body Surface Area) 2.31 m2 03-18-2019 [facility]pre[facility] nsive Internal Medicine (40758) BSA (Body Surface Area) 2.34 m2 01-14-2019 Compre[facility] nsive Internal Medicine (37003) BSA (Body Surface Area) 2.31 m2 10-13-2018 Comprehe nsive Internal Medicine (38070) BSA (Body Surface Area) 2.32 m2 09-22-2018 Comprehe nsive Internal Medicine (71422) Head Circumference 0 cm 02-10-2009 [facility] (89674) Head Circumference 0 cm 2008 [facility] (48789) Head Circumference 0 cm 11-25-2008 [facility] (06911) Head Circumference 0 cm 10-07-2008 [facility] (59761) Head Circumference 0 cm 09-09-2008 [facility] (34246) Height 182.88 cm 05-27-2019 [facility] In ternal Medicine (06696) Height 182.88 cm 03-18-2019 [facility] In ternal Medicine (45597) Height 182.88 cm 01-14-2019 [facility] In ternal Medicine (04697) Height 182.88 cm 10-13-2018 [facility] In ternal Medicine (75708) Height 182.88 cm 09-22-2018 [facility] In ternal Medicine (16896) Pulse (Heart Rate) 59 /min 05-27-2019 [facility] (95595) Pulse (Heart Rate) 64 /min 03-18-2019 [facility] (59771) Pulse (Heart Rate) 69 /min 01-14-2019 [facility] (90503) Pulse (Heart Rate) 76 /min 10-13-2018 [facility] (26954) Pulse (Heart Rate) 72 /min 09-22-2018 [facility] (60830) Pulse Oximetry 96 % 05-27-2019 [facility] In ternal Medicine (14573) Pulse Oximetry 96 % 03-18-2019 [facility]al Medicine (37772) Pulse Oximetry 95 % 01-14-2019 [facility]al Medicine (48655) Pulse Oximetry 95 % 10-13-2018 [facility] In [facility]al [facility] (30838) Pulse Oximetry 94 % 09-22-2018 [facility] In [facility]al Medicine (35281) Respiratory Rate 16 /min 05-27-2019 [facility] nternal Medicine (65517) Respiratory Rate 16 /min 03-18-2019 [facility] nternal Medicine (19660) Respiratory Rate 18 /min 01-14-2019 [facility] n[facility] (59899) Respiratory Rate 16 /min 10-13-2018 [facility] n[facility] (38413) Respiratory Rate 18 /min 09-22-2018 [facility] nternal Medicine (92664) Encounters Date Type Reason Provider Location 03-20-2019 - Annotation/Addendu [facility] 03-[facility]-2019 m bilateral Internal Medici ne 05-15-2011 - Annotation/Addendu Unspecified Comprehen [facility] 05-15-2011 m Diagnosis Internal Medici ne 03-19-2007 - Historical Summary Comprehen [facility] 03-19-2007 Internal Medici ne 09-22-2018 - Office outpatient Comprehens ryan 09-22-2018 visit 10 minutes Internal Me dicine 07-23-2018 - Office outpatient Comprehens ryan 07-23-2018 visit 10 minutes Internal Me dicine 06-11-2018 - Office outpatient BMI 34.0-34.9,adult Com prehensive 06-11-2018 visit 10 minutes Internal Me dicine 05-27-2019 - Office outpatient Comprehens ryan 05-27-2019 visit 15 minutes Internal Me dicine 03-18-2019 - Office outpatient Comprehens ryan 03-18-2019 visit 15 minutes Internal Me dicine 05-14-2018 - Office outpatient Comprehens ryan 05-14-2018 visit 15 minutes Internal Me dicine 09-23-2017 - Office outpatient Nonsmoker Comprehens ryan 09-23-2017 visit 15 minutes Internal Me dicine 12-14-2015 - Office outpatient Comprehens ryan 12-15-2015 visit 15 minutes Internal Me dicine 03-06-2011 - Office outpatient Comprehens ryan 03-06-2011 visit 15 minutes Internal Me dicine 02-01-2011 - Office outpatient Comprehens ryan 02-01-2011 visit 15 minutes Internal Me dicine 01-29-2011 - Office outpatient Comprehens ryan 01-29-2011 visit 15 minutes Internal Me dicine 2008 - Office outpatient Cerumen impaction Compr ehensive 2008 visit 15 minutes (380.4) Internal Me dicine 10-07-2008 - Office outpatient Comprehens ryan 10-07-2008 visit 15 minutes Internal Me dicine 08-26-2008 - Office outpatient Comprehens ryan 08-26-2008 visit 15 minutes Internal Me dicine 01-14-2019 - Office outpatient Comprehens ryan 01-14-2019 visit 25 minutes Internal Me dicine 06-24-2017 - Office outpatient Comprehens ryan 06-24-2017 visit 25 minutes Internal Me dicine 01-02-2017 - Office outpatient Comprehens ryan 01-02-2017 visit 25 minutes Internal Me dicine 09-09-2008 - Office outpatient Comprehens ryan 09-09-2008 visit 25 minutes Internal Me dicine 10-13-2018 Patient encounter Ester Cruz Compreh ensive procedure Ester Cruz Internal Med (11564) Ester Cruz 03-30-2016 - Patient encounter Encounter for Comprehen sive 03-30-2016 procedure screening for Internal Medic ine malignant neoplasm of colon (Renamed from Special screening for malignant neoplasms, colon) 12-31-2013 - Patient encounter Comprehens ryan 12-31-2013 procedure Internal Medici ne 12-03-2013 - Patient encounter Comprehens ryan 12-03-2013 procedure Internal Medici ne 05-26-2013 - Patient encounter Comprehens ryan 05-26-2013 procedure Internal Medici ne 04-30-2013 - Patient encounter Cerumen impaction Compr ehensive 04-30-2013 procedure (380.4) Internal Medici ne 10-03-2012 - Patient encounter Cerumen impaction Compr ehensive 10-03-2012 procedure (380.4) Internal Medici ne 08-14-2012 - Patient encounter Comprehens ryan 08-14-2012 procedure Internal Medici ne 01-15-2012 - Patient encounter Cerumen impaction Compr ehensive 01-21-2012 procedure (380.4) Internal Medici ne 01-11-2012 - Patient encounter Cerumen impaction Compr ehensive 01-11-2012 procedure (380.4) Internal Medici ne 05-21-2011 - Patient encounter Comprehens ryan 05-21-2011 procedure Internal Medici ne 05-14-2011 - Patient encounter Comprehens ryan 05-14-2011 procedure Internal Medici ne 04-03-2010 - Patient encounter Comprehens ryan 04-03-2010 procedure Internal Medici ne 02-10-2009 - Patient encounter Comprehens ryan 02-10-2009 procedure Internal Medici ne 11-25-2008 - Patient encounter Comprehens ryan 11-25-2008 procedure Internal Medici ne 12-25-2007 - Patient encounter Comprehens ryan 12-25-2007 procedure Internal Medici ne 04-10-2007 - Patient encounter Comprehens ryan 04-10-2007 procedure Internal Medici ne 03-20-2007 - Patient encounter Comprehens ryan 03-20-2007 procedure Internal Medici ne 03-23-2016 - Periodic Comprehensive 03-23-2016 preventive med est Internal Medicine patient 40-64yrs 02-08-2015 - Periodic Comprehensive 02-08-2015 preventive med est Internal Medicine patient 40-64yrs 02-03-2015 - Periodic Cognitive Comprehensive 02-03-2015 preventive med est dysfunction, Internal Medicine patient 40-64yrs acquired 10-13-2018 - Periodic Comprehensive 10-13-2018 preventive med est Internal Medicine patient 65yrs& older 03-25-2017 - Periodic Comprehensive 03-25-2017 preventive med est Internal Medicine patient 65yrs& older 01-03-2017 - Phone Encounter Unspecified Comprehensiv e 01-03-2017 Diagnosis Internal Medici ne 03-18-2019 Review Comprehensive Internal Medici ne Procedures Procedure Name Date Provider Location D/C Summary- SP 08-25-2018 - [facility] In [facility] 08-25-2018 Medicine (26470) Adult Evaluation - SP 06-02-2018 - Comprehens ryan Internal 06-02-2018 Medicine (26083) 12 lead ECG 03-28-2017 - Aiyana Phan [facility] 03-28-2017 Medicine (48648) Discharge Instruction 03-28-2017 - Comprehens ryan Internal 03-28-2017 Medicine (37928) [facility]ative [facility] (91729) Echocardiogram Complete 01-21-2017 - Ester Catherine Comprehe nsive Internal 01-21-2017 Medicine (41565) Stress Report 01-21-2017 - [facility] 01-21-2017 Medicine (65033) Chest PA and Lateral 01-02-2017 - Ester Catherine Comprehensi ve Internal 01-02-2017 Medicine (73790) Kidney and Bladder 04-13-2014 - Comprehensive Internal 04-13-2014 Medicine (63381) PT Discharge Summary 12-28-2013 - Comprehensi ve Internal 12-28-2013 Medicine (10836) Inital Evaluation - PT 12-09-2013 - Ester Catherine Comprehen sive Internal 12-09-2013 Medicine (19745) Knee 4 or More Views 12-03-2013 - Ester Catherine Comprehensi ve Internal 12-03-2013 Medicine (93715) Hernia repair Aracely Fang [facility] In ternal Medicine (50226) Comment: 03/31 Hernia repair Carol Ruiz [facility] In ternal Medicine (13297) Comment: 03/31 Hernia repair Carol Ruiz [facility] In ternal Medicine (46887) Comment: 03/31 Hernia repair Aracely Fang [facility] In ternal Medicine (08312) Comment: 03/31 Hernia repair Aracely Fang [facility]al Medicine (12779) Comment: 03/31 Hernia repair Jarvis Hussein [facility] In ternal Medicine (05258) Comment: 03/31 Hernia repair Aracely Annalisa [facility] In ternal Medicine (12374) Comment: 03/31 Plan of Treatment Plan Description Date Location Procedure Education Eprescribed 05-27-2019 Comprehensiv e Internal prescriptions (G8553) Medicine ( 28855) Provider Instructions Continue Current 05-27-2019 Comprehen sive Internal for Treatment Prescription(s) Medicine (00600) Procedure Education Eprescribed 03-18-2019 Comprehensiv e Internal prescriptions (G8553) Medicine ( 22879) Procedure Education Eprescribed 01-14-2019 Comprehensiv e Internal prescriptions (G8553) Medicine ( 24087) Provider Instructions no information 01-14-2019 Comprehens ryan Internal for Treatment Medicine (34395) Provider Instructions no information 10-13-2018 Comprehens ryan Internal for Treatment Medicine (86079) Provider Instructions Diet, Exercise, and Wt 09-22-2018 Com prehensive Internal for Treatment loss Medicine (95389) Provider Instructions Follow up in 2 months 07-23-2018 Comp rehensive Internal for Treatment Medicine (89748) Provider Instructions Follow up in 6 weeks 06-11-2018 Compr ehensive Internal for Treatment Medicine (67517) Provider Instructions Follow up in 4 weeks 05-14-2018 Compr ehensive Internal for Treatment Medicine (38955) Provider Instructions Follow up in 2 months 09-23-2017 Comp rehensive Internal for Treatment Medicine (83014) Provider Instructions no information 06-24-2017 Comprehens ryan Internal for Treatment Medicine (39089) LIPID PANEL (86484) LIPID PANEL (42077) 06-24-2017 Comprehe nsive Internal Medicine (28604) Appointment Appointment 04-08-2017 - [facility] 04-08-2017 (28897) Appointment Appointment 03-27-2017 - [facility] 03-27-2017 (89148) Procedure Education Eprescribed 03-25-2017 Comprehensiv e Internal prescriptions (G8553) Medicine ( 68349) Provider Instructions no information 03-25-2017 Comprehens ryan Internal for Treatment Medicine (75509) PSA (PROSTATE SPECIFIC PSA (PROSTATE SPECIFIC 03-25-2017 Co mprehensive Internal ANTIGEN) (V76.44) ANTIGEN) (V76.44) Medicine (44 691) PSA (PROSTATE SPECIFIC PSA (PROSTATE SPECIFIC 03-25-2017 Co mprehensive Internal ANTIGEN) (V76.44) ANTIGEN) (V76.44) Medicine (44 691) Appointment Appointment 03-07-2017 - [facility] 03-07-2017 (26223) FECAL OCCULT- Tubes FECAL OCCULT- Tubes sent 03-23-2016 Com prehensive Internal sent home (47730) home (36535) Medicine (4469 1) Provider Instructions no information 03-23-2016 Comprehens ryan Internal for Treatment Medicine (01960) Procedure Education Eprescribed 02-08-2015 Comprehensiv e Internal prescriptions (G8553) Medicine ( 65474) Provider Instructions Poison [place] Education 02-03-2015 Compr ehensive Internal for Treatment Medicine (26614) Provider Instructions no information 12-31-2013 Comprehens ryan Internal for Treatment Medicine (35776) Provider Instructions no information 12-03-2013 Comprehens ryan Internal for Treatment Medicine (04384) Provider Instructions no information 05-26-2013 Comprehens ryan Internal for Treatment Medicine (46748) Patient Education Flu (Influenza) *: flu 04-30-2013 Compreh ensive Internal shot Medicine (70534) Provider Instructions Follow up in 1 week 05-14-2011 Compre hensive Internal for Treatment Medicine (64698) OVA & PARASITE DIR OVA & PARASITE DIR SMEAR 01-29-2011 Comp rehensive Internal SMEAR (20033) (90703) Medicine (61737) OCCULT BLOOD FECES OCCULT BLOOD FECES 01-29-2011 Comprehens ryan Internal SCREEN (52256) SCREEN (33604) Medicine (11646) C-DIFFICILE, STOOL C-DIFFICILE, STOOL 01-29-2011 Comprehens ryan Internal (58340) (19612) Medicine (73558) LEUKOCYTE COUNT, FECAL LEUKOCYTE COUNT, FECAL 01-29-2011 Co mprehensive Internal (70158) (46094) Medicine (26061) MARY ANNE CULTURE-STOOL MARY ANNE CULTURE-STOOL 01-29-2011 Comprehensiv e Internal (84411) (14201) Medicine (36591) Provider Instructions no information 01-29-2011 Comprehens ryan Internal for Treatment Medicine (63766) Provider Instructions Continue Current 02-10-2009 Comprehen sive Internal for Treatment Prescription(s) Medicine (11147) Provider Instructions FOLLOW UP IN 2 WEEKS 08-26-2008 Compr ehensive Internal for Treatment Medicine (88616) no information [facility] In ternal Medicine (70636) no information [facility] In ternal Medicine (95892) no information [facility] In ternal Medicine (56122) no information [facility] In ternal Medicine (36214) no information [facility] In ternal Medicine (11402) no information [facility] In ternal Medicine (83225) no information [facility] In ternal Medicine (07877) no information [facility] In ternal Medicine (21959) Need for prophylactic Comprehens ryan Internal vaccination and Medicine (81570) inoculation against influenza : Flu (Influenza) *: flu shot no information [facility] In ternal Medicine (26442) no information [facility] In ternal Medicine (16256) no information [facility] In ternal Medicine (09902) no information [facility] In ternal Medicine (82585) no information [facility] In ternal Medicine (36013) no information [facility] In ternal Medicine (74907) no information [facility] (43213) no information [facility] In ternal Medicine (11612) no information [facility] In ternal Medicine (37035) no information [facility] In ternal Medicine (39221) no information [facility] In ternal Medicine (79718) no information [facility] In ternal Medicine (33636) no information [facility] In ternal Medicine (91500) no information [facility] In ternal Medicine (65242) Immunizations Vaccine Notes Status Date Location Tdap (7 years and tetanus toxoid, (completed) 02-10-2009 - Compreh ensive Internal up) reduced diphtheria 02-10-2009 Medicine (30495) toxoid, and acellular pertussis vaccine, adsorbed Comment: Giiven in left deltoidLot# A [id number] APPRENTICE Payers Payer Name Policy Number Location Medicaid [id number] [facility] (79853) Medicare [id number] [facility] (10117) Medicare [id number] [facility] (49808) [facility] (54155) [id number] [facility] (95527) Social History Type Social History Description Date Locat ion Former smoker [facility] (27346) Comment: Single, celibate Client, Jorge [employer] , works at [employer] Tobacco use: Former smoker. [facility] (87015) The following information is from the original human readable contentNo Social History Records Found Instructions Name Dates Details BMI 33.0-33.9,adult : How to access health information onlin e Indication: BMI 33.0-33.9,adult BMI 33.0-33.9,adult : How to access health information onlin e - Detail Indication: BMI 33.0-33.9,adult BMI 33.0-33.9,adult : Patient Instructions Indication: BMI 33.0-33.9,adult BMI 34.0-34.9,adult : How to access health information onlin e Indication: BMI 34.0-34.9,adult BMI 34.0-34.9,adult : How to access health information onlin e - Detail Indication: BMI 34.0-34.9,adult BMI 34.0-34.9,adult : Patient Instructions Indication: BMI 34.0-34.9,adult Nonsmoker : How to access health information online Indication: Nonsmoker Nonsmoker : How to access health information online - Detail Indication: Nonsmoker Nonsmoker : Patient Instructions Indication: Nonsmoker Mild mental retardation : How to access health information o nline Indication: Mild mental retardation BMI 35.0-35.9,adult : How to access health information onlin e - Detail Indication: BMI 35.0-35.9,adult BMI 35.0-35.9,adult : Patient Instructions Indication: BMI 35.0-35.9,adult BMI 36.0-36.9,adult : How to access health information onlin e Indication: BMI 36.0-36.9,adult BMI 36.0-36.9,adult : How to access health information onlin e - Detail Indication: BMI 36.0-36.9,adult BMI 36.0-36.9,adult : Patient Instructions Indication: BMI 36.0-36.9,adult Other intervertebral disc degeneration, lumbar region : obes ity counseling Indication: Other intervertebral disc degeneration, lumbar r egion Contact dermatitis due to poison chelo : How to access health information online Indication: Contact dermatitis due to poison chelo Contact dermatitis due to poison chelo : H ow to access health information online - Detail Indication: Contact dermatitis due to poison chelo Contact dermatitis due to poison chelo : Patient Instructions Indication: Contact dermatitis due to poison chelo Calcinosis : Patient Instructions Indication: Calcinosis Screening for prostate cancer : Patient Instructions Indication: Screening for prostate cancer BMI 33.0-33.9,adult : obesity counseling Indication: BMI 33.0-33.9,adult Name Dates Details Nonsmoker : How to access health information online Indication: Nonsmoker Nonsmoker : How to access health information online - Detail Indication: Nonsmoker Nonsmoker : Patient Instructions Indication: Nonsmoker Mild mental retardation : How to access health information o nline Indication: Mild mental retardation BMI 35.0-35.9,adult : How to access health information onlin e - Detail Indication: BMI 35.0-35.9,adult BMI 35.0-35.9,adult : Patient Instructions Indication: BMI 35.0-35.9,adult BMI 36.0-36.9,adult : How to access health information onlin e Indication: BMI 36.0-36.9,adult BMI 36.0-36.9,adult : How to access health information onlin e - Detail Indication: BMI 36.0-36.9,adult BMI 36.0-36.9,adult : Patient Instructions Indication: BMI 36.0-36.9,adult BMI 34.0-34.9,adult : How to access health information onlin e Indication: BMI 34.0-34.9,adult BMI 34.0-34.9,adult : How to access health information onlin e - Detail Indication: BMI 34.0-34.9,adult BMI 34.0-34.9,adult : Patient Instructions Indication: BMI 34.0-34.9,adult Other intervertebral disc degeneration, lumbar region : obes ity counseling Indication: Other intervertebral disc degeneration, lumbar r egion Contact dermatitis due to poison chelo : How to access health information online Indication: Contact dermatitis due to poison chelo Contact dermatitis due to poison chelo : H ow to access health information online - Detail Indication: Contact dermatitis due to poison chelo Contact dermatitis due to poison chelo : Patient Instructions Indication: Contact dermatitis due to poison chelo Calcinosis : Patient Instructions Indication: Calcinosis Screening for prostate cancer : Patient Instructions Indication: Screening for prostate cancer BMI 33.0-33.9,adult : obesity counseling Indication: BMI 33.0-33.9,adult Name Dates Details BMI 33.0-33.9,adult : How to access health information onlin e Indication: BMI 33.0-33.9,adult BMI 33.0-33.9,adult : How to access health information onlin e - Detail Indication: BMI 33.0-33.9,adult BMI 33.0-33.9,adult : Patient Instructions Indication: BMI 33.0-33.9,adult BMI 34.0-34.9,adult : How to access health information onlin e Indication: BMI 34.0-34.9,adult BMI 34.0-34.9,adult : How to access health information onlin e - Detail Indication: BMI 34.0-34.9,adult BMI 34.0-34.9,adult : Patient Instructions Indication: BMI 34.0-34.9,adult Nonsmoker : How to access health information online Indication: Nonsmoker Nonsmoker : How to access health information online - Detail Indication: Nonsmoker Nonsmoker : Patient Instructions Indication: Nonsmoker Mild mental retardation : How to access health information o nline Indication: Mild mental retardation BMI 35.0-35.9,adult : How to access health information onlin e - Detail Indication: BMI 35.0-35.9,adult BMI 35.0-35.9,adult : Patient Instructions Indication: BMI 35.0-35.9,adult BMI 36.0-36.9,adult : How to access health information onlin e Indication: BMI 36.0-36.9,adult BMI 36.0-36.9,adult : How to access health information onlin e - Detail Indication: BMI 36.0-36.9,adult BMI 36.0-36.9,adult : Patient Instructions Indication: BMI 36.0-36.9,adult Other intervertebral disc degeneration, lumbar region : obes ity counseling Indication: Other intervertebral disc degeneration, lumbar r egion Contact dermatitis due to poison chelo : How to access health information online Indication: Contact dermatitis due to poison chelo Contact dermatitis due to poison chelo : H ow to access health information online - Detail Indication: Contact dermatitis due to poison chelo Contact dermatitis due to poison chelo : Patient Instructions Indication: Contact dermatitis due to poison chelo Calcinosis : Patient Instructions Indication: Calcinosis Screening for prostate cancer : Patient Instructions Indication: Screening for prostate cancer BMI 33.0-33.9,adult : obesity counseling Indication: BMI 33.0-33.9,adult Name Dates Details Annual Medicare Phyiscal WITHOUT abnorma l findings (Renamed from Encounter for general adult medical examination without abnormal findings) : How to access health information online Indication: Annual Medicare Phyiscal WIT HOUT abnormal findings (Renamed from Encounter for general adult medical examination without abnormal findings) Annual Medicare Phyiscal WITHOUT abnorma l findings (Renamed from Encounter for general adult medical examination without abnormal findings) : How to access health information online - Detail Indication: Annual Medicare Phyiscal WIT HOUT abnormal findings (Renamed from Encounter for general adult medical examination without abnormal findings) Annual Medicare Phyiscal WITHOUT abnorma l findings (Renamed from Encounter for general adult medical examination without abnormal findings) : Patient Instructions Indication: Annual Medicare Phyiscal WIT HOUT abnormal findings (Renamed from Encounter for general adult medical examination without abnormal findings) BMI 33.0-33.9,adult : How to access health information onlin e Indication: BMI 33.0-33.9,adult BMI 33.0-33.9,adult : How to access health information onlin e - Detail Indication: BMI 33.0-33.9,adult BMI 33.0-33.9,adult : Patient Instructions Indication: BMI 33.0-33.9,adult BMI 34.0-34.9,adult : How to access health information onlin e Indication: BMI 34.0-34.9,adult BMI 34.0-34.9,adult : How to access health information onlin e - Detail Indication: BMI 34.0-34.9,adult BMI 34.0-34.9,adult : Patient Instructions Indication: BMI 34.0-34.9,adult Nonsmoker : How to access health information online Indication: Nonsmoker Nonsmoker : How to access health information online - Detail Indication: Nonsmoker Nonsmoker : Patient Instructions Indication: Nonsmoker Mild mental retardation : How to access health information o nline Indication: Mild mental retardation BMI 35.0-35.9,adult : How to access health information onlin e - Detail Indication: BMI 35.0-35.9,adult BMI 35.0-35.9,adult : Patient Instructions Indication: BMI 35.0-35.9,adult BMI 36.0-36.9,adult : How to access health information onlin e Indication: BMI 36.0-36.9,adult BMI 36.0-36.9,adult : How to access health information onlin e - Detail Indication: BMI 36.0-36.9,adult BMI 36.0-36.9,adult : Patient Instructions Indication: BMI 36.0-36.9,adult Other intervertebral disc degeneration, lumbar region : obes ity counseling Indication: Other intervertebral disc degeneration, lumbar r egion Contact dermatitis due to poison chelo : How to access health information online Indication: Contact dermatitis due to poison chelo Contact dermatitis due to poison chelo : H ow to access health information online - Detail Indication: Contact dermatitis due to poison che[place] Contact dermatitis due to poison chelo : Patient Instructions Indication: Contact dermatitis due to poison chelo Calcinosis : Patient Instructions Indication: Calcinosis Screening for prostate cancer : Patient Instructions Indication: Screening for prostate cancer BMI 33.0-33.9,adult : obesity counseling Indication: BMI 33.0-33.9,adult Name Dates Details How to access health information online Start: 14-Jan-2019 Instruction Type: Patient Education Indication: Non-smoker How to access health information online - Detail Start: Instruction Type: Patient Education Indication: Non-smoker Patient Instructions Start: 14-Jan-2019 Instruction Type: Provider Instructions for Treatment Indication: Non-smoker How to access health information online Start: 13-Oct-2018 Instruction Type: Patient Education Indication: Annual Medicare Phyiscal WIT HOUT abnormal findings (Renamed from Encounter for general adult medical examination without abnormal findings) How to access health information online - Detail Start: Instruction Type: Patient Education Indication: Annual Medicare Phyiscal WIT HOUT abnormal findings (Renamed from Encounter for general adult medical examination without abnormal findings) Patient Instructions Start: 13-Oct-2018 Instruction Type: Provider Instructions for Treatment Indication: Annual Medicare Phyiscal WIT HOUT abnormal findings (Renamed from Encounter for general adult medical examination without abnormal findings) How to access health information online Start: 22-Sep-2018 Instruction Type: Patient Education Indication: BMI 33.0-33.9,adult How to access health information online - Detail Start: Sep-2018 Instruction Type: Patient Education Indication: BMI 33.0-33.9,adult Patient Instructions Start: 22-Sep-2018 Instruction Type: Provider Instructions for Treatment Indication: BMI 33.0-33.9,adult How to access health information online Start: 23-Jul-2018 Instruction Type: Patient Education Indication: BMI 33.0-33.9,adult How to access health information online - Detail Start: Instruction Type: Patient Education Indication: BMI 33.0-33.9,adult Patient Instructions Start: 23-Jul-2018 Instruction Type: Provider Instructions for Treatment Indication: BMI 33.0-33.9,adult How to access health information online Start: 11-Jun-2018 Instruction Type: Patient Education Indication: BMI 34.0-34.9,adult How to access health information online - Detail Start: May-2018 Instruction Type: Patient Education Indication: BMI 34.0-34.9,adult Patient Instructions Start: 11-Jun-2018 Instruction Type: Provider Instructions for Treatment Indication: BMI 34.0-34.9,adult How to access health information online Start: 14-May-2018 Instruction Type: Patient Education Indication: Nonsmoker How to access health information online - Detail Start: Apr-2018 Instruction Type: Patient Education Indication: Nonsmoker Patient Instructions Start: 14-May-2018 Instruction Type: Provider Instructions for Treatment Indication: Nonsmoker How to access health information online Start: 23-Sep-2017 Instruction Type: Patient Education Indication: Mild mental retardation How to access health information online - Detail Start: Sep-2017 Instruction Type: Patient Education Indication: BMI 35.0-35.9,adult Patient Instructions Start: 23-Sep-2017 Instruction Type: Provider Instructions for Treatment Indication: BMI 35.0-35.9,adult How to access health information online Start: 24-Jun-2017 Instruction Type: Patient Education Indication: BMI 36.0-36.9,adult How to access health information online - Detail Start: Jun-2017 Instruction Type: Patient Education Indication: BMI 36.0-36.9,adult Patient Instructions Start: 24-Jun-2017 Instruction Type: Provider Instructions for Treatment Indication: BMI 36.0-36.9,adult How to access health information online Start: 25-Mar-2017 Instruction Type: Patient Education Indication: Nonsmoker How to access health information online - Detail Start: Mar-2017 Instruction Type: Patient Education Indication: Nonsmoker Patient Instructions Start: 25-Mar-2017 Instruction Type: Provider Instructions for Treatment Indication: Nonsmoker How to access health information online Start: 02-Jan-2017 Instruction Type: Patient Education Indication: BMI 34.0-34.9,adult How to access health information online - Detail Start: Dec-2016 Instruction Type: Patient Education Indication: BMI 34.0-34.9,adult Patient Instructions Start: 02-Jan-2017 Instruction Type: Provider Instructions for Treatment Indication: BMI 34.0-34.9,adult obesity counseling Start: 23-Mar-2016 Instruction Type: P rovider Instructions for Treatment Indication: Other intervertebral disc degeneration, lumbar r egion How to access health information online Start: 08-Feb-2015 Instruction Type: Patient Education Indication: Contact dermatitis due to poison [place] How to access health information online - Detail Start: Jan-2015 Instruction Type: Patient Education Indication: Contact dermatitis due to poison [place] Patient Instructions Start: 08-Feb-2015 Instruction Type: Provider Instructions for Treatment Indication: Contact dermatitis due to poison che[place] Patient Instructions Start: 31-Dec-2013 Instruction Type: Provider Instructions for Treatment Indication: Calcinosis Patient Instructions Start: 26-May-2013 Instruction Type: Provider Instructions for Treatment Indication: Screening for prostate cancer obesity counseling Start: 26-May-2013 Instruction Type: P rovider Instructions for Treatment Indication: BMI 33.0-33.9,adult Name Dates Details How to access health information online Start: 18-Mar-2019 Instruction Type: Patient Education Indication: Non-smoker How to access health information online - Detail Start: Instruction Type: Patient Education Indication: Non-smoker Patient Instructions Start: 18-Mar-2019 Instruction Type: Provider Instructions for Treatment Indication: Non-smoker How to access health information online Start: 14-Jan-2019 Instruction Type: Patient Education Indication: Non-smoker How to access health information online - Detail Start: Instruction Type: Patient Education Indication: Non-smoker Patient Instructions Start: 14-Jan-2019 Instruction Type: Provider Instructions for Treatment Indication: Non-smoker How to access health information online Start: 13-Oct-2018 Instruction Type: Patient Education Indication: Annual Medicare Phyiscal WIT HOUT abnormal findings (Renamed from Encounter for general adult medical examination without abnormal findings) How to access health information online - Detail Start: Instruction Type: Patient Education Indication: Annual Medicare Phyiscal WIT HOUT abnormal findings (Renamed from Encounter for general adult medical examination without abnormal findings) Patient Instructions Start: 13-Oct-2018 Instruction Type: Provider Instructions for Treatment Indication: Annual Medicare Phyiscal WIT HOUT abnormal findings (Renamed from Encounter for general adult medical examination without abnormal findings) How to access health information online Start: 22-Sep-2018 Instruction Type: Patient Education Indication: BMI 33.0-33.9,adult How to access health information online - Detail Start: Sep-2018 Instruction Type: Patient Education Indication: BMI 33.0-33.9,adult Patient Instructions Start: 22-Sep-2018 Instruction Type: Provider Instructions for Treatment Indication: BMI 33.0-33.9,adult How to access health information online Start: 23-Jul-2018 Instruction Type: Patient Education Indication: BMI 33.0-33.9,adult How to access health information online - Detail Start: Instruction Type: Patient Education Indication: BMI 33.0-33.9,adult Patient Instructions Start: 23-Jul-2018 Instruction Type: Provider Instructions for Treatment Indication: BMI 33.0-33.9,adult How to access health information online Start: 11-Jun-2018 Instruction Type: Patient Education Indication: BMI 34.0-34.9,adult How to access health information online - Detail Start: May-2018 Instruction Type: Patient Education Indication: BMI 34.0-34.9,adult Patient Instructions Start: 11-Jun-2018 Instruction Type: Provider Instructions for Treatment Indication: BMI 34.0-34.9,adult How to access health information online Start: 14-May-2018 Instruction Type: Patient Education Indication: Nonsmoker How to access health information online - Detail Start: Apr-2018 Instruction Type: Patient Education Indication: Nonsmoker Patient Instructions Start: 14-May-2018 Instruction Type: Provider Instructions for Treatment Indication: Nonsmoker How to access health information online Start: 23-Sep-2017 Instruction Type: Patient Education Indication: Mild mental retardation How to access health information online - Detail Start: Sep-2017 Instruction Type: Patient Education Indication: BMI 35.0-35.9,adult Patient Instructions Start: 23-Sep-2017 Instruction Type: Provider Instructions for Treatment Indication: BMI 35.0-35.9,adult How to access health information online Start: 24-Jun-2017 Instruction Type: Patient Education Indication: BMI 36.0-36.9,adult How to access health information online - Detail Start: Jun-2017 Instruction Type: Patient Education Indication: BMI 36.0-36.9,adult Patient Instructions Start: 24-Jun-2017 Instruction Type: Provider Instructions for Treatment Indication: BMI 36.0-36.9,adult How to access health information online Start: 25-Mar-2017 Instruction Type: Patient Education Indication: Nonsmoker How to access health information online - Detail Start: Mar-2017 Instruction Type: Patient Education Indication: Nonsmoker Patient Instructions Start: 25-Mar-2017 Instruction Type: Provider Instructions for Treatment Indication: Nonsmoker How to access health information online Start: 02-Jan-2017 Instruction Type: Patient Education Indication: BMI 34.0-34.9,adult How to access health information online - Detail Start: Dec-2016 Instruction Type: Patient Education Indication: BMI 34.0-34.9,adult Patient Instructions Start: 02-Jan-2017 Instruction Type: Provider Instructions for Treatment Indication: BMI 34.0-34.9,adult obesity counseling Start: 23-Mar-2016 Instruction Type: P rovider Instructions for Treatment Indication: Other intervertebral disc degeneration, lumbar r egion How to access health information online Start: 08-Feb-2015 Instruction Type: Patient Education Indication: Contact dermatitis due to poison [place] How to access health information online - Detail Start: Jan-2015 Instruction Type: Patient Education Indication: Contact dermatitis due to poison [place] Patient Instructions Start: 08-Feb-2015 Instruction Type: Provider Instructions for Treatment Indication: Contact dermatitis due to poison [place] Patient Instructions Start: 31-Dec-2013 Instruction Type: Provider Instructions for Treatment Indication: Calcinosis Patient Instructions Start: 26-May-2013 Instruction Type: Provider Instructions for Treatment Indication: Screening for prostate cancer obesity counseling Start: 26-May-2013 Instruction Type: Christin concepcion Instructions for Treatment Indication: BMI 33.0-33.9,adult Name Dates Details How to access health information online Start: 18-Mar-2019 Instruction Type: Patient Education Indication: Non-smoker How to access health information online - Detail Start: Instruction Type: Patient Education Indication: Non-smoker Patient Instructions Start: 18-Mar-2019 Instruction Type: Provider Instructions for Treatment Indication: Non-smoker How to access health information online Start: 14-Jan-2019 Instruction Type: Patient Education Indication: Non-smoker How to access health information online - Detail Start: Instruction Type: Patient Education Indication: Non-smoker Patient Instructions Start: 14-Jan-2019 Instruction Type: Provider Instructions for Treatment Indication: Non-smoker How to access health information online Start: 13-Oct-2018 Instruction Type: Patient Education Indication: Annual Medicare Phyiscal WIT HOUT abnormal findings (Renamed from Encounter for general adult medical examination without abnormal findings) How to access health information online - Detail Start: Instruction Type: Patient Education Indication: Annual Medicare Phyiscal WIT HOUT abnormal findings (Renamed from Encounter for general adult medical examination without abnormal findings) Patient Instructions Start: 13-Oct-2018 Instruction Type: Provider Instructions for Treatment Indication: Annual Medicare Phyiscal WIT HOUT abnormal findings (Renamed from Encounter for general adult medical examination without abnormal findings) How to access health information online Start: 22-Sep-2018 Instruction Type: Patient Education Indication: BMI 33.0-33.9,adult How to access health information online - Detail Start: Sep-2018 Instruction Type: Patient Education Indication: BMI 33.0-33.9,adult Patient Instructions Start: 22-Sep-2018 Instruction Type: Provider Instructions for Treatment Indication: BMI 33.0-33.9,adult How to access health information online Start: 23-Jul-2018 Instruction Type: Patient Education Indication: BMI 33.0-33.9,adult How to access health information online - Detail Start: Instruction Type: Patient Education Indication: BMI 33.0-33.9,adult Patient Instructions Start: 23-Jul-2018 Instruction Type: Provider Instructions for Treatment Indication: BMI 33.0-33.9,adult How to access health information online Start: 11-Jun-2018 Instruction Type: Patient Education Indication: BMI 34.0-34.9,adult How to access health information online - Detail Start: May-2018 Instruction Type: Patient Education Indication: BMI 34.0-34.9,adult Patient Instructions Start: 11-Jun-2018 Instruction Type: Provider Instructions for Treatment Indication: BMI 34.0-34.9,adult How to access health information online Start: 14-May-2018 Instruction Type: Patient Education Indication: Nonsmoker How to access health information online - Detail Start: Apr-2018 Instruction Type: Patient Education Indication: Nonsmoker Patient Instructions Start: 14-May-2018 Instruction Type: Provider Instructions for Treatment Indication: Nonsmoker How to access health information online Start: 23-Sep-2017 Instruction Type: Patient Education Indication: Mild mental retardation How to access health information online - Detail Start: Sep-2017 Instruction Type: Patient Education Indication: BMI 35.0-35.9,adult Patient Instructions Start: 23-Sep-2017 Instruction Type: Provider Instructions for Treatment Indication: BMI 35.0-35.9,adult How to access health information online Start: 24-Jun-2017 Instruction Type: Patient Education Indication: BMI 36.0-36.9,adult How to access health information online - Detail Start: Jun-2017 Instruction Type: Patient Education Indication: BMI 36.0-36.9,adult Patient Instructions Start: 24-Jun-2017 Instruction Type: Provider Instructions for Treatment Indication: BMI 36.0-36.9,adult How to access health information online Start: 25-Mar-2017 Instruction Type: Patient Education Indication: Nonsmoker How to access health information online - Detail Start: Mar-2017 Instruction Type: Patient Education Indication: Nonsmoker Patient Instructions Start: 25-Mar-2017 Instruction Type: Provider Instructions for Treatment Indication: Nonsmoker How to access health information online Start: 02-Jan-2017 Instruction Type: Patient Education Indication: BMI 34.0-34.9,adult How to access health information online - Detail Start: Dec-2016 Instruction Type: Patient Education Indication: BMI 34.0-34.9,adult Patient Instructions Start: 02-Jan-2017 Instruction Type: Provider Instructions for Treatment Indication: BMI 34.0-34.9,adult obesity counseling Start: 23-Mar-2016 Instruction Type: P rovider Instructions for Treatment Indication: Other intervertebral disc degeneration, lumbar r egion How to access health information online Start: 08-Feb-2015 Instruction Type: Patient Education Indication: Contact dermatitis due to poison [place] How to access health information online - Detail Start: Jan-2015 Instruction Type: Patient Education Indication: Contact dermatitis due to poison [place] Patient Instructions Start: 08-Feb-2015 Instruction Type: Provider Instructions for Treatment Indication: Contact dermatitis due to poison [place] Patient Instructions Start: 31-Dec-2013 Instruction Type: Provider Instructions for Treatment Indication: Calcinosis Patient Instructions Start: 26-May-2013 Instruction Type: Provider Instructions for Treatment Indication: Screening for prostate cancer obesity counseling Start: 26-May-2013 Instruction Type: Christin concepcion Instructions for Treatment Indication: BMI 33.0-33.9,adult Name Dates Details How to access health information online Start: 27-May-2019 Instruction Type: Patient Education Indication: Non-smoker How to access health information online - Detail Start: May-2019 Instruction Type: Patient Education Indication: Non-smoker Patient Instructions Start: 27-May-2019 Instruction Type: Provider Instructions for Treatment Indication: Non-smoker How to access health information online Start: 18-Mar-2019 Instruction Type: Patient Education Indication: Non-smoker How to access health information online - Detail Start: Instruction Type: Patient Education Indication: Non-smoker Patient Instructions Start: 18-Mar-2019 Instruction Type: Provider Instructions for Treatment Indication: Non-smoker How to access health information online Start: 14-Jan-2019 Instruction Type: Patient Education Indication: Non-smoker How to access health information online - Detail Start: Instruction Type: Patient Education Indication: Non-smoker Patient Instructions Start: 14-Jan-2019 Instruction Type: Provider Instructions for Treatment Indication: Non-smoker How to access health information online Start: 13-Oct-2018 Instruction Type: Patient Education Indication: Annual Medicare Phyiscal WIT HOUT abnormal findings (Renamed from Encounter for general adult medical examination without abnormal findings) How to access health information online - Detail Start: Instruction Type: Patient Education Indication: Annual Medicare Phyiscal WIT HOUT abnormal findings (Renamed from Encounter for general adult medical examination without abnormal findings) Patient Instructions Start: 13-Oct-2018 Instruction Type: Provider Instructions for Treatment Indication: Annual Medicare Phyiscal CANELO KRISHNANUT abnormal findings (Renamed from Encounter for general adult medical examination without abnormal findings) How to access health information online Start: 22-Sep-2018 Instruction Type: Patient Education Indication: BMI 33.0-33.9,adult How to access health information online - Detail Start: Sep-2018 Instruction Type: Patient Education Indication: BMI 33.0-33.9,adult Patient Instructions Start: 22-Sep-2018 Instruction Type: Provider Instructions for Treatment Indication: BMI 33.0-33.9,adult How to access health information online Start: 23-Jul-2018 Instruction Type: Patient Education Indication: BMI 33.0-33.9,adult How to access health information online - Detail Start: Instruction Type: Patient Education Indication: BMI 33.0-33.9,adult Patient Instructions Start: 23-Jul-2018 Instruction Type: Provider Instructions for Treatment Indication: BMI 33.0-33.9,adult How to access health information online Start: 11-Jun-2018 Instruction Type: Patient Education Indication: BMI 34.0-34.9,adult How to access health information online - Detail Start: May-2018 Instruction Type: Patient Education Indication: BMI 34.0-34.9,adult Patient Instructions Start: 11-Jun-2018 Instruction Type: Provider Instructions for Treatment Indication: BMI 34.0-34.9,adult How to access health information online Start: 14-May-2018 Instruction Type: Patient Education Indication: Nonsmoker How to access health information online - Detail Start: Apr-2018 Instruction Type: Patient Education Indication: Nonsmoker Patient Instructions Start: 14-May-2018 Instruction Type: Provider Instructions for Treatment Indication: Nonsmoker How to access health information online Start: 23-Sep-2017 Instruction Type: Patient Education Indication: Mild mental retardation How to access health information online - Detail Start: Sep-2017 Instruction Type: Patient Education Indication: BMI 35.0-35.9,adult Patient Instructions Start: 23-Sep-2017 Instruction Type: Provider Instructions for Treatment Indication: BMI 35.0-35.9,adult How to access health information online Start: 24-Jun-2017 Instruction Type: Patient Education Indication: BMI 36.0-36.9,adult How to access health information online - Detail Start: Jun-2017 Instruction Type: Patient Education Indication: BMI 36.0-36.9,adult Patient Instructions Start: 24-Jun-2017 Instruction Type: Provider Instructions for Treatment Indication: BMI 36.0-36.9,adult How to access health information online Start: 25-Mar-2017 Instruction Type: Patient Education Indication: Nonsmoker How to access health information online - Detail Start: Mar-2017 Instruction Type: Patient Education Indication: Nonsmoker Patient Instructions Start: 25-Mar-2017 Instruction Type: Provider Instructions for Treatment Indication: Nonsmoker How to access health information online Start: 02-Jan-2017 Instruction Type: Patient Education Indication: BMI 34.0-34.9,adult How to access health information online - Detail Start: Dec-2016 Instruction Type: Patient Education Indication: BMI 34.0-34.9,adult Patient Instructions Start: 02-Jan-2017 Instruction Type: Provider Instructions for Treatment Indication: BMI 34.0-34.9,adult obesity counseling Start: 23-Mar-2016 Instruction Type: P rovider Instructions for Treatment Indication: Other intervertebral disc degeneration, lumbar r egion How to access health information online Start: 08-Feb-2015 Instruction Type: Patient Education Indication: Contact dermatitis due to poison chelo How to access health information online - Detail Start: Jan-2015 Instruction Type: Patient Education Indication: Contact dermatitis due to poison chelo Patient Instructions Start: 08-Feb-2015 Instruction Type: Provider Instructions for Treatment Indication: Contact dermatitis due to poison chelo Patient Instructions Start: 31-Dec-2013 Instruction Type: Provider Instructions for Treatment Indication: Calcinosis Patient Instructions Start: 26-May-2013 Instruction Type: Provider Instructions for Treatment Indication: Screening for prostate cancer obesity counseling Start: 26-May-2013 Instruction Type: P rovider Instructions for Treatment Indication: BMI 33.0-33.9,adult Summary Purpose Family History No Family History Records Found Advance Directives No Advanced Directives Records Found Additional Source Comments FOR RECORDS PERTAINING TO PATIENTS WHO ARE OR HAVE BEEN ENROLLED IN A CHEMICAL DEPENDENCY/SUBSTANCE ABUSE PROGRAM, SOME INFORMATION MAY BE OMITTED. This clinical summary was aggregated from multiple sources. Caution should be exercised in using it in the provision of clinical care. This summary normalizes information from multiple sources, and as a consequence, information in this document may materially changethe coding, format and clinical context of patient data. In addition, data may be omittedin some cases. CLINICAL DECISIONS SHOULD BE BASED ON THE PRIMARY CLINICAL RECORDS. [facility] provides no warranty or guarantee of the accuracy or completeness of information in this document. UNRECOGNIZED CONTENT PROVIDED BELOW FOR UNRECOGNIZED SECTION No Status Records Found UNRECOGNIZED CONTENT PROVIDED BELOW FOR UNRECOGNIZED SECTION INFORMATION SOURCE DATE CREATED AUTHOR AUTHOR'S ORGANIZATIO N 10/16/2018 [employer]
== END ==
PROVIDERS: PCP Internal Medicine; Referring Provider Urology; Visit Provider Urology
DX: N40.0 Benign prostatic hyperplasia without lower urinary tract symptoms (principal)
CPT/HCPCS: 36415; 84153

== ENCOUNTER 2020-06-22 10:59 | Inpatient (IN) | payer MEDICARE, MEDICAID, SELFPAY ==
[2020-06-22] VITALS (10 sets, daily range): BP systolic 126–150; BP diastolic 74–99; PULSE 65–78; RESP 17–20; TEMP 36.4–36.9; O2SAT 96–98; BMI 40.3; BMI 40.4
--- NOTE | 2020-06-22 11:24 | ED.DCSUM_ITS ---
History of Present Illness Chief Complaint: Wound Informant: Patient Onset: - - unsure; first seen by practitioner 2d ago, now worse Context: Gradual Onset Timing: Continuous Quality: redness surrounding seeping wound Location: left knee Current Severity: Moderate Maximum Severity: Moderate Worsened by: palpation Relieved by: leaving alone Associated Symptoms: redness/swelling going down leg. no fevers. Narrative: This patient presents with worsening apparent infection in his left lower extremity. He has a history of being cognitively slow. He has a case assistant who accompanies him as a result. She helps with his medical appointments and needs. Apparently, last week at one of her visit, the patient told her that he tripped and fell, scraping his knee on the pavement outside. It is unknown how long ago this happened, but suspected to be a couple weeks. Recently it appeared to be red and concerning, so 2 days ago [facility], he was given IM Rocephin, placed on clindamycin, and the surface of the wound was swabbed for a culture, which is not yet resulted. Today it was reevaluated by the same practitioner, and looks worse. She performed incision and drainage with a razor in the office and states that she drained a small amount of purulent material. Out of concern for failure of outpatient treatment now, he was sent from there to the emergency department. He denies having any fevers that he knows of, he has not had COVID-19 and denies any respiratory symptoms. He has been able to walk and move his leg. Redness and swelling is spreading distally. - Past Medical History (1) Mild intellectual disability Status: Chronic Past Medical History - Allergies and Home Meds Allergies/Adverse Reactions: Allergies No Known Allergies Allergy (Verified 06/22/20 11:02) Primary Care Physician: Ester Alexander DO [Primary Care Provider] - Surgical History: noncontributory Lives: Alone Smoking Status: Never smoker Review of Systems General: Denies: Chills, Fever, Sweats Eyes: Denies: Visual changes - bilaterally, Diplopia ENT: Denies: Rhinorrhea, Sore throat Cardiovascular: Denies: Chest pain, Palpitations Respiratory: Denies: Dyspnea, Cough, Dyspnea on exertion Gastrointestinal: Denies: Abdominal pain, Nausea, Vomiting, Diarrhea, Melena, Hematochezia Genitourinary: Denies: Dysuria, Hematuria, Frequency Musculoskeletal: Reports: Swelling - LLE, Extremity Pain. Denies: Back pain Skin: Reports: Rash - redness around wound, Wounds Neurological: Denies: Headache, Weakness, Numbness Physical Exam Vital Signs/Narrative: Vital Signs Temp Pulse Resp BP Pulse Ox 06/22/20 11:00 98 F 78 18 132/79 H 96 Inital Vital Signs reviewed: Yes General: Well nourished, Well developed, No Acute Distress - well-appearing Head: Normocephalic, Atraumatic Eyes: Perrl, EOMI ENT: Moist mucous membranes, No rhinorrhea Neck: Supple, Nontender Cardiovascular: Regular rate, Regular rhythm, No murmurs. Negative for: Tachycardia Respiratory: No distress, CTA bilaterally, Chest nontender Abdomen: Soft, Nontender, Nondistended, Normal bowel sounds Back: Nontender, Normal Inspection Extremities: Tenderness, Edema, - - LLE: without lymphangitis, there is distal warm erythema in context of an edematous left lower leg. Thigh is normal without erythema, cord, lymphangitis. All compartments are soft and nontender. Full range of motion throughout all joints left lower extremity. Skin: Rash - There is a slightly open wound at the anterior aspect of the left knee, somewhat distally that is seeping purulent-looking material. There is no boggy abscess present at this time. There is surrounding cellulitis that is all tender. 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 Anterior soft tissue swelling. Electronically Signed: Jean Braga MD at 12:15 EST Tel , Service support , 06/22/20 11:45 Knee 1 or 2 Views [RAD] Stat Laboratory Results 06/22/20 06/22/20 06/22/20 11:30 11:30 11:30 WBC 5.5 RBC 5.28 Hgb 14.6 Hct 45.3 MCV 85.8 MCH 27.7 MCHC 32.2 RDW Std Deviation 43.1 RDW Coeff of Juan Alberto 13.7 Plt Count 245 MPV 9.9 Immature Gran % (Auto) 0.400 Neut % (Auto) 73.8 H Lymph % (Auto) 15.6 L [place] % (Auto) 7.9 Eos % (Auto) 1.8 Baso % (Auto) 0.5 Absolute Neuts (auto) 4.0 Absolute Lymphs (auto) 0.85 Nucleated RBC % 0 PT 14.1 INR 1.1 APTT 30.7 Sodium 142 Potassium 4.1 Chloride 109 H Carbon Dioxide 28.0 Anion Gap 5 BUN 19 H Creatinine 0.91 Estim Creat Clear Calc 76.93 Est GFR (MDRD) Af Amer 109 Est GFR (MDRD) Non-Af 90 BUN/Creatinine Ratio 20.9 H Glucose 98 Lactic Acid Calcium 8.8 Total Bilirubin 0.70 AST 14 L ALT 23 Alkaline Phosphatase 100 Total Protein 7.3 Albumin 3.4 Globulin 3.9 Albumin/Globulin Ratio 0.9 06/22/20 11:30 WBC RBC Hgb Hct MCV MCH MCHC RDW Std Deviation RDW Coeff of Juan Alberto Plt Count MPV Immature Gran % (Auto) Neut % (Auto) Lymph % (Auto) [place] % (Auto) Eos % (Auto) Baso % (Auto) Absolute Neuts (auto) Absolute Lymphs (auto) Nucleated RBC % PT INR APTT Sodium Potassium Chloride Carbon Dioxide Anion Gap BUN Creatinine Estim Creat Clear Calc Est GFR (MDRD) Af Amer Est GFR (MDRD) Non-Af BUN/Creatinine Ratio Glucose Lactic Acid 1.4 Calcium Total Bilirubin AST ALT Alkaline Phosphatase Total Protein Albumin Globulin Albumin/Globulin Ratio - Medical Decision Making This may be a septic prepatellar bursitis. It may be lacking bogginess right now because it was already incised and drained. Since the patient has been on antibiotics for 2-3 days including doses of parenteral antibiotics, I think he would benefit from inpatient disposition with IV antibiotics and further evaluation. His exam is inconsistent with a septic arthritis. Clinically he is well and not septic. Blood cultures were sent, I also did a wound culture after sterilizing the wound with chlorhexidine and expressing a small amount of fresh discharge. IV vancomycin and cefazolin given after cultures obtained. ED Disposition - Plan for ED Patient: Disposition: Acute Care Hospital [facility] Diagnosis: Cellulitis of left lower extremity, Infected abrasion of left lower extremity, Failure of outpatient treatment Referrals: Ester Alexander DO [Primary Care Provider] -
--- NOTE | 2020-06-22 11:45 | RAD_ITS ---
STUDY: X-RAY - LEFT KNEE REASON FOR EXAM: Left knee wound, fall with left knee injury several weeks ago. TECHNIQUE: 2 view(s) of the knee. COMPARISON: Radiographs 12/03/2013. FINDINGS: Normal visualized distal femur. Normal visualized proximal tibia and fibula. Normal proximal tibiofibular articulation. There is mild joint space narrowing of the medial femorotibial compartment. Normal lateral femorotibial compartment. There are small marginal osteophytes and mild joint space narrowing of the patellofemoral articulation. There is soft tissue swelling at the anterior aspect of the knee with a small calcification anterior to the distal patellar tendon as on the prior study. There is chondrocalcinosis in the [place]. 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 Anterior soft tissue swelling. Electronically Signed: Jean Braga MD at 12:15 EST Tel , Service support ,
[2020-06-22 11:56] LABS: Absolute Lymphocyte Count 0.85 X10^3/uL (0.83-4.51); Basophil# 0.03 X10^3/uL; Basophil% 0.5 % (0-1); Eosinophils% 1.8 % (0-5); Hematocrit 45.3 % (40-54); Hemoglobin 14.6 g/dL (13.0-16.5); Lymphocyte # 0.85 X10^3/ul (4.0); Lymphocyte % 15.6 % (19-41); Mean Corp Hgb Conc 32.2 g/dL (32-36); Mean Corpuscular Hgb 27.7 pg (27.0-32.0); Mean Corpuscular Volume 85.8 fL (80-94); Mean Platelet Vol. 9.9 fl (6.2-12.0); Monocyte# 0.43 X10^3/uL; Monocyte% 7.9 % (0-10); NRBC Flagged by Analyzer 0 % (0-5); Neutrophil # 4.03 X10^3/uL (2.7-7.7); Neutrophil % 73.8 % (47-70); Platelet Count 245 K/mm3 (150-450); RBC Distribution Width CV 13.7 % (11.6-14.6); RBC Distribution Width SD 43.1 fl (35.1-43.9); Red Blood Count 5.28 M/mm3 (4.6-6.2); White Blood Count 5.5 K/mm3 (4.4-11.0)
[2020-06-22 12:03] LABS: International Normalized Ratio 1.1; Partial Thromboplast Time 30.7 Seconds (24.1-36.2); Prothrombin Time (Protime)PT. 14.1 SECONDS (11.7-14.9)
[2020-06-22 12:11] LABS: ALB/GLOB Ratio 0.9 RATIO (0.9-2.4); AST(SGOT) 14 U/L (15-37); Alanine Aminotransfer ALT/SGPT 23 U/L (16-61); Albumin, Serum 3.4 g/dL (3.2-5.0); Alkaline Phosphatase 100 U/L (45-117); Anion Gap 5 (5-15); BUN 19 mg/dL (7-18); BUN/Creat Ratio 20.9 RATIO (10-20); Calcium,Total 8.8 mg/dL (8.5-10.1); Chloride 109 mmol/L (98-107); Creatinine, Serum 0.91 mg/dL (0.70-1.30); EST Glomerular Filtration Rate 90 mL/min (>60); Est Glom Filt Rate - Afr Amer 109 mL/min (>60); Estimated Creatinine Clearance 76.93 ml/min; Globulin 3.9 g/dL (2.2-4.2); Glucose 98 mg/dL (74-106); Potassium 4.1 mmol/L (3.5-5.1); Protein, Total 7.3 g/dL (6.4-8.2); Sodium Level 142 mmol/L (136-145)
[2020-06-22 12:23] LABS: Lactic Acid 1.4 mmol/L (0.4-1.9)
--- NOTE | 2020-06-22 12:32 | ED.RN ---
[employer]ATOR LISBETH TREVINO [phone] SISTER MOOKIE GODOY [phone]
--- NOTE | 2020-06-22 12:55 | PCM.HP.STD ---
Problem List (1) Mild intellectual disability Status: Chronic (2) Cellulitis of left lower extremity Status: Acute (3) Infected abrasion of left lower extremity Status: Acute Qualifiers: Encounter type: initial encounter Qualified Code(s): S80.812A - Abrasion, left lower leg, initial encounter; L08.9 - Local infection of the skin and subcutaneous tissue, unspecified (4) Failure of outpatient treatment Status: Acute History of Present Illness Date of Admission: 06/22/20 Chief Complaint: Left knee and leg swelling - 2 days The patient is a 59 year old M with PMHx of mild intellectual disability, who lives in a shelter, who comes in after a fall and has an infected left knee abrasion. It is unclear when this started, patient apparently fell onto the pavement outside and scraped his knee. [facility] and he received Rocephin and clindamycin as well as a superficial swab was taken. He was reevaluated today, and outpatient I&D was done and a small amount of purulent material was expressed. It was felt that his left knee and leg was worse and sent to the emergency department. Patient complained of pain in his left knee and leg. Denied any fever chills or chest pain or shortness of breath. Vitals in the ED showed temperature of 98F, heart rate 78, blood pressure 132/79, respiratory rate 18, SPO2 is 96% on room air. WBC count is 5.5, hemoglobin 14.6, platelet count 245, INR 1.1, sodium 142, potassium 4.1, chloride 109, bicarbonate 28, BUN 19, creatinine 0.91, lactic acid 1.4, LFT unremarkable. Repeat wound cultures were taken in the ED. Blood cultures are pending. X-ray of the knee shows mild osteoarthritis of the medial femorotibial, patellofemoral- fibular compartment and anterior soft tissue swelling. Past Medical History Past Medical History (Chronic Problems): Chronic Problems Mild intellectual disability (Chronic) Allergies No Known Allergies Allergy (Verified 06/22/20 11:02) Home Medications: Ambulatory Orders Medication Instructions Recorded Bethanechol Chloride 25 mg PO 4X/DAY 03/22/17 Multivit-Mins/Iron/Folic/Lycop 1 each PO DAILY 03/22/17 [Centrum Men's Tablet] Tamsulosin HCl [Flomax] 0.4 mg PO DAILY 09/10/19 Omeprazole 40 mg PO DAILY 06/22/20 Surgical History: herniorrhaphy, TURP, - - s/p colonoscopy Psychiatric History: No pertinent psych hx Lives: Alone Smoking Status: Never smoker Tobacco Use: Non-smoker Alcohol: None Drugs: None - *Family History Maternal History Items: COPD Paternal History Items: Heart Disease, Hypertension Review of Systems Constitutional: Denies: Anorexia, Chills, Fever, Malaise, Weakness, Weight Change Eyes: Denies: Blurred vision, Cataracts, Conjunctivae Inflammation, Pain, Redness HEENT: Denies: Difficulty Hearing, Difficulty Swallowing, Head Aches, Hearing Changes, Sinus Congestion, Sinus Drainage Cardiovascular: Denies: Chest Pain, Claudication, Orthopnea, Palpitations Respiratory: Denies: Cough, Shortness of Breath, Shortness of breath at rest, Shortness of breath upon exertion, Sputum production Gastrointestinal: Denies: Abdominal Pain, Constipation, Hematemesis, Hematochezia, Nausea, Vomiting Genitourinary: Denies: Dysuria, Frequency, Incontinence Musculoskeletal: Reports: Joint Pain, Joint swelling, Joint Tenderness, Leg Pain Skin: Denies: Pruritis, Rash, Wounds Neurological: Denies: Difficulty swallowing, Focal weakness, Numbness, Tingling Psychiatric: Denies: Anxiety, Depression, Homicidal Ideations, Suicidal Ideations Hematologic/ Lymphatic: Denies: Easy Bruising, Easy Bleeding VTE Information - Inpt Only VTE Present on Admission: No VTE Pharm Prophylaxis ordered?: Yes Patient Problems: Active and Suspected Problems Cellulitis of left lower extremity (Acute) Infected abrasion of left lower extremity (Acute) Failure of outpatient treatment (Acute) - Physical Exam Vitals/I&O's: Vital Signs Temp Pulse Resp BP Pulse Ox 97.7 F L 69 17 136/99 H 96 06/22/20 12:35 06/22/20 12:02 06/22/20 12:02 06/22/20 12:02 06/22/20 12:02 Oxygen Delivery Method Room Air Weight: 113.398 kg Body Mass Index (BMI) 40.3 General: Alert, Oriented x3, Cooperative, No apparent distress, - - morbid obesity HEENT: Atraumatic, PERRLA, EOMI, Normocephalic Oral: Moist Mucosa Neck: Supple Lungs: Clear to auscultation, Normal air movement Cardiovascular: Regular rate, Regular Rhythm, Normal S1, Normal S2, No murmurs Abdomen: Bowel Sounds Present, Soft, Non Tender, Non-Distended, No Hepato-splenomegaly Extremities: Edema - left leg swelling, more than left, erythema, dressing over the left knee, abrasion Skin: No rashes Musculoskeletal: No Tenderness to Palpation of Joints or Extremities Lymphatic: No Cervical, Supraclavicular, or Inguinal Adenopathy Neurological: Cranial nerves II-XII grossly intact, Neuro grossly intact Psych/Mental Status: Normal Affect, Appropriate Laboratory Results 06/22/20 11:30: WBC 5.5, RBC 5.28, Hgb 14.6, Hct 45.3, MCV 85.8, MCH 27.7, MCHC 32.2, RDW Std Deviation 43.1, RDW Coeff of Juan Alberto 13.7, Plt Count 245, MPV 9.9, Immature Gran % (Auto) 0.400, Neut % (Auto) 73.8 H, Lymph % (Auto) 15.6 L, [place] % (Auto) 7.9, Eos % (Auto) 1.8, Baso % (Auto) 0.5, Absolute Neuts (auto) 4.0, Absolute Lymphs (auto) 0.85, Nucleated RBC % 0 06/22/20 11:30: PT 14.1, INR 1.1, APTT 30.7 06/22/20 11:30: Sodium 142, Potassium 4.1, Chloride 109 H, Carbon Dioxide 28.0, Anion Gap 5, BUN 19 H, Creatinine 0.91, Estim Creat Clear Calc 76.93, Est GFR (MDRD) Af Amer 109, Est GFR (MDRD) Non-Af 90, BUN/Creatinine Ratio 20.9 H, Glucose 98, Calcium 8.8, Total Bilirubin 0.70, AST 14 L, ALT 23, Alkaline Phosphatase 100, Total Protein 7.3, Albumin 3.4, Globulin 3.9, Albumin/Globulin Ratio 0.9 06/22/20 11:30: Lactic Acid 1.4 Current Medications Vancomycin HCl 1,750 mg/ (Sodium Chloride) 535 mls @ 250 mls/hr IV X1 ONE Stop: 06/22/20 13:38 Last Admin: 06/22/20 12:04 Dose: 250 mls/hr Documented by: Assessment/Plan All Active Problems Cellulitis of left lower extremity (Acute) Infected abrasion of left lower extremity (Acute) Failure of outpatient treatment (Acute) 1. Acute infected left knee wound with cellulitis, s/p mechanical fall, status post failed outpatient treatment. X-ray of the knee showed anterior soft tissue swelling Started on IV vancomycin and cefazolin We will continue the same Wound RN consult 2. Acute left lower leg swelling, concerning for possible acute DVT Doppler ultrasound stat 3. Mild learning disability 4. DVT PPx- Lovenox SC Inpatient E&M: 73306 Init Hosp L3
[2020-06-22] MEDS: Cefazolin 1 GM/50 ML BAG IV ×2 (15:02→22:52)
--- NOTE | 2020-06-22 16:48 | VDLE_ITS ---
Reason For Study: LEG SWELLING Procedure LEFT Exam performed portable in patient room. GSV is normal. This is a venous duplex using B-mode, color CFV is compressible, spontaneous, phasic, flow and spectral Doppler. competent, and demonstrates normal Dr Soham Neil was notified at 9:00 AM. augmentation. FV is compressible, spontaneous, phasic, competent and demonstrates normal augmentation. POP V is compressible, spontaneous, phasic, competent and demonstrates normal augmentation. T/P Trunk is compressible. PTV is compressible. LT PerV is compressible. Interpretation Summary There is no evidence of left lower extremity deep vein thrombosis. Left great saphenous vein appears patent and compressible segmentally. Ordering Physician: Malinda Banks Referring Physician: Ester Alexander M.D. Performed By: Radha Acharya RVT, RDCS and Student
--- NOTE | 2020-06-22 17:16 | PCM.RX.CS ---
Consult Pharmacy has been consulted to manage selected antiobiotic: Vancomycin Type of Consult: New start Prior Doses of Antibiotics Received/Current Regimen: Medications Discontinued Medications Vancomycin HCl 1,750 mg/ (Sodium Chloride) 535 mls @ 250 mls/hr IV X1 ONE Stop: 06/22/20 13:38 Last Admin: 06/22/20 15:58 Dose: Infused Documented by: Labs: Sodium 142 mmol/L (136-145) 06/22/20 11:30 Potassium 4.1 mmol/L (3.5-5.1) 06/22/20 11:30 Chloride 109 mmol/L (98-107) H 06/22/20 11:30 Carbon Dioxide 28.0 mmol/L (21.0-32.0) 06/22/20 11:30 Anion Gap 5 (5-15) 06/22/20 11:30 BUN 19 mg/dL (7-18) H 06/22/20 11:30 Creatinine 0.91 mg/dL (0.70-1.30) 06/22/20 11:30 Est GFR (MDRD) Af Amer 109 mL/min (>60) 06/22/20 11:30 Est GFR (MDRD) Non-Af 90 mL/min (>60) 06/22/20 11:30 BUN/Creatinine Ratio 20.9 RATIO (10-20) H 06/22/20 11:30 Glucose 98 mg/dL (74-106) 06/22/20 11:30 Microbiology: Microbiology 06/22/20 11:35 Wound Abcess - Knee Gram Stain - Final Weight used for dosin kg Estimated Creatinine Clearance: 78 mL/min Goal Trough: 15-20 mcg/mL Pharmacy Plan for Drug Dosinmg IV q12h with trough prior to 4th dose per policy. Pharmacy Service will continue to monitor and adjust dosing as required. Follow-Up Labs: Trough Vancomycin - 06/23 @ 2230
[2020-06-22] MEDS: BETHANECHOL CHLORIDE 25 MG TABLET PO ×2 (20:20→23:00)
[2020-06-22] MEDS: 0.9% Saline Lock 10 ML Syringe IV (22:40)
[2020-06-23 03:17] VITALS: BP 143/92; PULSE 68; RESP 18; TEMP 36.6; O2SAT 98
[2020-06-23] MEDS: Acetaminophen 325 MG Tablet 650 MG PO ×2 (03:22→20:59)
[2020-06-23 05:51] LABS: Absolute Lymphocyte Count 1.06 X10^3/uL (0.83-4.51); Absolute Neutrophil Count 4.2 X10^3/uL (2.0-7.7); Basophil# 0.05 X10^3/uL; Basophil% 0.8 % (0-1); Eosinophil# 0.15 X10^3/uL; Eosinophils% 2.5 % (0-5); Hematocrit 42.9 % (40-54); Hemoglobin 13.4 g/dL (13.0-16.5); Lymphocyte # 1.06 X10^3/ul (4.0); Lymphocyte % 17.9 % (19-41); Mean Corp Hgb Conc 31.2 g/dL (32-36); Mean Corpuscular Hgb 26.7 pg (27.0-32.0); Mean Corpuscular Volume 85.6 fL (80-94); Mean Platelet Vol. 9.9 fl (6.2-12.0); Monocyte# 0.47 X10^3/uL; Monocyte% 7.9 % (0-10); NRBC Flagged by Analyzer 0 % (0-5); Neutrophil # 4.18 X10^3/uL (2.7-7.7); Neutrophil % 70.7 % (47-70); Platelet Count 234 K/mm3 (150-450); RBC Distribution Width CV 13.8 % (11.6-14.6); Red Blood Count 5.01 M/mm3 (4.6-6.2); White Blood Count 5.9 K/mm3 (4.4-11.0)
[2020-06-23 06:15] LABS: ALB/GLOB Ratio 0.8 RATIO (0.9-2.4); AST(SGOT) 13 U/L (15-37); Alanine Aminotransfer ALT/SGPT 23 U/L (16-61); Albumin, Serum 3.1 g/dL (3.2-5.0); Alkaline Phosphatase 97 U/L (45-117); Anion Gap 4 (5-15); BUN 15 mg/dL (7-18); BUN/Creat Ratio 21.8 RATIO (10-20); Calcium,Total 8.4 mg/dL (8.5-10.1); Chloride 109 mmol/L (98-107); Creatinine, Serum 0.69 mg/dL (0.70-1.30); EST Glomerular Filtration Rate 124 mL/min (>60); Est Glom Filt Rate - Afr Amer 150 mL/min (>60); Estimated Creatinine Clearance 101.45 ml/min; Globulin 3.8 g/dL (2.2-4.2); Glucose 94 mg/dL (74-106); Potassium 3.9 mmol/L (3.5-5.1); Protein, Total 6.9 g/dL (6.4-8.2); Sodium Level 141 mmol/L (136-145)
[2020-06-23] MEDS: Cefazolin 1 GM/50 ML BAG IV (06:31)
[2020-06-23] MEDS: 0.9% Saline Lock 10 ML Syringe IV ×3 (06:31→22:51)
[2020-06-23] MEDS: BETHANECHOL CHLORIDE 25 MG TABLET PO ×4 (09:21→20:57)
[2020-06-23] MEDS: Enoxaparin 40 MG/0.4 ML Syringe SC (09:21)
[2020-06-23] MEDS: Pantoprazole Sodium 40 MG Tablet PO (09:21)
[2020-06-23] MEDS: Tamsulosin HCl 0.4 MG Capsule PO (09:21)
--- NOTE | 2020-06-23 09:22 | PCM.PN.HOSP ---
Patient Problems: Active and Suspected Problems Cellulitis of left lower extremity (Acute) Infected abrasion of left lower extremity (Acute) Failure of outpatient treatment (Acute) Reason for Visit: LLE cellulitis Subjective: Denies any pain in his knee. Notes that his left leg is swollen. Denies any chest pain or shortness of breath. Vitals/I&O's: Vital Signs Temp Pulse Resp BP Pulse Ox 36.6 C 68 18 143/92 H 98 06/23/20 03:17 06/23/20 03:17 06/23/20 03:17 06/23/20 03:17 06/23/20 03:17 Oxygen Delivery Method Room Air Weight: 115.076 kg Body Mass Index (BMI) 40.3 Intake and Output for Last 24 Hours 06/21/20 06/22/20 06/23/20 23:59 23:59 23:59 Intake Total 1885 / 2285 1385 / 1385 Output Total 500 / 500 Balance 1885 / 2085 885 / 885 General: Alert, No apparent distress HEENT: Atraumatic, Normocephalic Oral: Moist Mucosa, No Gingival or Mucosal Lesions/ Ulcerations Neck: No Nodes, Thyroid Normal Size and Texture Lungs: Clear to auscultation, Normal air movement, No rhonchi, No wheeze Cardiovascular: Regular rate, Regular Rhythm, Normal S1, Normal S2 Abdomen: Bowel Sounds Present, Soft, Non Tender, Non-Distended, No Hepato-splenomegaly Extremities: Edema Skin: - - Left lower extremity abrasion on left anterior knee with some purulence Microbiology Past 72 Hours 06/22/20 11:35 Wound Abcess - Knee Gram Stain - Final Laboratory Results 06/22/20 11:30: WBC 5.5, RBC 5.28, Hgb 14.6, Hct 45.3, MCV 85.8, MCH 27.7, MCHC 32.2, RDW Std Deviation 43.1, RDW Coeff of Juan Alberto 13.7, Plt Count 245, MPV 9.9, Immature Gran % (Auto) 0.400, Neut % (Auto) 73.8 H, Lymph % (Auto) 15.6 L, Imperial % (Auto) 7.9, Eos % (Auto) 1.8, Baso % (Auto) 0.5, Absolute Neuts (auto) 4.0, Absolute Lymphs (auto) 0.85, Nucleated RBC % 0 06/22/20 11:30: PT 14.1, INR 1.1, APTT 30.7 06/22/20 11:30: Sodium 142, Potassium 4.1, Chloride 109 H, Carbon Dioxide 28.0, Anion Gap 5, BUN 19 H, Creatinine 0.91, Estim Creat Clear Calc 76.93, Est GFR (MDRD) Af Amer 109, Est GFR (MDRD) Non-Af 90, BUN/Creatinine Ratio 20.9 H, Glucose 98, Calcium 8.8, Total Bilirubin 0.70, AST 14 L, ALT 23, Alkaline Phosphatase 100, Total Protein 7.3, Albumin 3.4, Globulin 3.9, Albumin/Globulin Ratio 0.9 06/22/20 11:30: Lactic Acid 1.4 06/23/20 05:25: WBC 5.9, RBC 5.01, Hgb 13.4, Hct 42.9, MCV 85.6, MCH 26.7 L, MCHC 31.2 L, RDW Std Deviation 43.0, RDW Coeff of Juan Alberto 13.8, Plt Count 234, MPV 9.9, Immature Gran % (Auto) 0.200, Neut % (Auto) 70.7 H, Lymph % (Auto) 17.9 L, Imperial % (Auto) 7.9, Eos % (Auto) 2.5, Baso % (Auto) 0.8, Absolute Neuts (auto) 4.2, Absolute Lymphs (auto) 1.06, Nucleated RBC % 0 06/23/20 05:25: Sodium 141, Potassium 3.9, Chloride 109 H, Carbon Dioxide 28.0, Anion Gap 4 L, BUN 15, Creatinine 0.69 L, Estim Creat Clear Calc 101.45, Est GFR (MDRD) Af Amer 150, Est GFR (MDRD) Non-Af 124, BUN/Creatinine Ratio 21.8 H, Glucose 94, Calcium 8.4 L, Total Bilirubin 0.80, AST 13 L, ALT 23, Alkaline Phosphatase 97, Total Protein 6.9, Albumin 3.1 L, Globulin 3.8, Albumin/Globulin Ratio 0.8 L Current Medications Acetaminophen (Acetaminophen 325 Mg Tablet) 650 mg PO Q6H PRN PRN PRN Reason: Pain Score 1-10/Temp > 100.7 F Last Admin: 06/23/20 03:22 Dose: 650 mg Documented by: Albuterol Sulfate (Albuterol 2.5 Mg/3 Ml Vial.Neb.) 2.5 mg INHALATION Q2H PRN PRN PRN Reason: Shortness of Breath/Wheezing Bethanechol Chloride (Bethanechol Chloride 25 Mg Tablet) 25 mg PO 4X/DAY [facility] Last Admin: 06/23/20 09:21 Dose: 25 mg Documented by: Enoxaparin Sodium (Enoxaparin 40 Mg/0.4 Ml Syringe) 40 mg SC DAILY [facility] Last Admin: 06/23/20 09:21 Dose: 40 mg Documented by: Vancomycin IV Pharmacy to Dose (1 ea/ Sodium Chloride) 500 mls @ 250 mls/hr IV X1 PRN; Protocol PRN Reason: Rx to Dose Cefazolin Sodium () 1 gm in 50 mls @ 100 mls/hr IV Q8 [facility] Last Infusion: 06/23/20 07:32 Dose: Infused Documented by: Vancomycin HCl 1,750 mg/ (Sodium Chloride) 535 mls @ 250 mls/hr IV Q12H [facility] Last Infusion: 06/23/20 01:02 Dose: Infused Documented by: Nitroglycerin (Nitroglycerin (Inpatient Use) 0.4 Mg Tab.Subl) 0.4 mg SUBLINGUAL Q5M PRN PRN Reason: CARDIAC/CHEST PAIN Ondansetron HCl (Ondansetron 4 Mg/2 Ml Vial) 4 mg IV Q8H PRN PRN PRN Reason: NAUSEA/VOMITING Oxycodone HCl (Oxycodone 5 Mg Tablet) 5 mg PO Q6H PRN PRN PRN Reason: Pain Score 6-10 Pantoprazole Sodium (Pantoprazole Sodium 40 Mg Tablet) 40 mg PO DAILY [facility] Last Admin: 06/23/20 09:21 Dose: 40 mg Documented by: Sodium Chloride (0.9% Saline Lock 10 Ml Syringe) 10 - 40 ml IV UD PRN PRN Reason: SALINE FLUSH Last Admin: 06/23/20 07:32 Dose: 10 ml Documented by: Tamsulosin HCl (Tamsulosin Hcl 0.4 Mg Capsule) 0.4 mg PO DAILY [facility] Last Admin: 06/23/20 09:21 Dose: 0.4 mg Documented by: Medical Necessity - Tobacco Use Smoking Status: Never smoker Tobacco Use: Non-smoker Assessment/Plan All Active Problems Cellulitis of left lower extremity (Acute) Infected abrasion of left lower extremity (Acute) Failure of outpatient treatment (Acute) 1. Left lower extremity cellulitis from abrasion Gram stain showing 2+ gram-positive cocci. Hold off on cefazolin and continue with vancomycin. Follow-up culture results Wound care to see 2. Left lower extremity swelling Preliminary review of the duplex was negative. 3. VTE prophylaxis with low molecular weight heparin 4. Disposition: Monitor the patient overnight to ensure that he is doing well and if so anticipate patient could be discharged as early as the . Inpatient E&M: 92419 Subs Hosp L2
--- NOTE | 2020-06-23 09:31 | NURSING ---
wound photo: left knee
[2020-06-23 09:53] VITALS: BP 138/103; PULSE 76; RESP 18; TEMP 36.8; O2SAT 97
--- NOTE | 2020-06-23 09:55 | NURSING ---
recieved phone call from derrek Valencia states she is the [place] cnc service technician and talked with she talked w/ the patient this a.m. and he requested she give up her phone number incase she is needed or questions arise. Her contact # is [phone]
--- NOTE | 2020-06-23 10:02 | CASEMGMT ---
Social Work Assessment Referral Date: 06/23/2020 Date of Assessment: 06/23/2020 Reason for consult: Per H+P, pt is noted to live in assisted Informant: Personal Status: SW spoke with RN. Pt is alert, able to answer questions. SW met with pt and introduced self and role at [facility]. Pt is alert and orientated, answer questions appropriately. Living Arrangements: Pt states he lives alone in a one story apartment. Pt states he has set of stairs by lamp post and couple steps to enter apartment. Pt denied living in a assisted. DME: Pt denied PCP: Dr. Alexander [facility]: [facility] Supports: Pt states he has [facility] full service vending driver Ashley Valencia. CM Mumtaz through [employer]. Pt also states he has a sister named Erendira Sage. ADLs: Pt states previously independent with ADLs. Pt states he doesn't drive. Pt states he utilizes [facility], taxi, walk or friends for transportation. Substance Abuse Hx: Pt states he used to smoke cigarettes and drink but denied current use. Mental Health Hx: SW asked pt if he had any history of anxiety, or depression. Pt asked this worker to explain anxiety and depression. SW provided pt with symptoms of anxiety and depression. Pt states he thinks he has some anxiety and depression. Pt denied any history or current suicidal thoughts/plans/ideations. Resources: Pt is linked up with [facility], [employer], attends [employer], and works at [employer]. SW spoke with pt regarding discharge plans. Pt states no concerns with returning home at discharge. Pt denied additional needs or concerns at this time. RAY placed a call to Ashley Valencia [phone]. Ashley confirms pt lives in own apartment, not a assisted. Pt is own person, own decision maker, no guardian. Ashley states pt is independent goes to [facility], goes to [employer], plays organ at [employer] has support through [employer]. Ashley states pt's sister is Payee for pt. Ashley asked to be updated when pt discharges and what pt's needs will be. Ashley requests discharge paperwork be faxed to [facility], provided fax number [phone]. Plan: Home Lucero Garnica PSS DELIVERY PROFESSIONAL, FONDANT PUFF MAKER
--- NOTE | 2020-06-23 14:59 | CHAPLAIN ---
Type of Pastoral Visit _x__ Initial Visit ___ Follow-up Visit ___ On-call Visit ___ General Patient Visit ___ Spiritual Assessment ___ Family Conference ___ Bereavement ___ Rapid Response ___ Code Blue ___ Other (describe below) Pastoral Care Referral From ___ Patient ___ Family _x__ Nurse ___ Physician ___ Multimedia Designer ___ Engineering Professionals ___ Other (describe below) Sacrament/Intervention _x__ Active listening ___ Anointing ___ Mu-Ism ___ Bereavement ___ Communion ___ Melita exploration ___ _x__ Life review _x__ Prayer ___ Reconciliation ___ Sacrament of Sick _x__ Supportive presence ___ Wedding ___ Other (describe below) Pastoral Comments RN in ED stated that patient asked for a Bible and that he admitted to being anxious; pt had told RN he would like to talk with the hospital unit assistant; found pt sitting in chair and alert; pt was able to answer questions but did not lead in the conversation; pt states he has a job, goes to [employer] and attends [facility] [employer] in [facility]; pt described his foot injury, says he is doing ok, and welcomed a prayer; pt had no other needs at this time
[2020-06-23 15:08] VITALS: BP 135/96; PULSE 74; RESP 16; TEMP 36.8; O2SAT 98
[2020-06-23 20:02] VITALS: BP 141/101; PULSE 69; RESP 18; TEMP 36.6; O2SAT 97
[2020-06-23 23:58] LABS: Vancomycin, Trough Level 10.4 ug/mL (5.0-15.0)
[2020-06-24 02:16] VITALS: BP 141/100; PULSE 75; RESP 18; TEMP 36.5; O2SAT 95
[2020-06-24] MEDS: 0.9% Saline Lock 10 ML Syringe IV ×2 (02:27→11:22)
[2020-06-24] MEDS: Acetaminophen 325 MG Tablet 650 MG PO (06:48)
--- NOTE | 2020-06-24 06:57 | PCM.RX.CS ---
Consult Pharmacy has been consulted to manage selected antiobiotic: Vancomycin Type of Consult: Follow-up Suspected Infection: Skin/Soft tissue Prior Doses of Antibiotics Received/Current Regimen: current regimen is 1750mg IV q12h Labs: Sodium 141 mmol/L (136-145) 06/23/20 05:25 Potassium 3.9 mmol/L (3.5-5.1) 06/23/20 05:25 Chloride 109 mmol/L (98-107) H 06/23/20 05:25 Carbon Dioxide 28.0 mmol/L (21.0-32.0) 06/23/20 05:25 Anion Gap 4 (5-15) L 06/23/20 05:25 BUN 15 mg/dL (7-18) 06/23/20 05:25 Creatinine 0.69 mg/dL (0.70-1.30) L 06/23/20 05:25 Est GFR (MDRD) Af Amer 150 mL/min (>60) 06/23/20 05:25 Est GFR (MDRD) Non-Af 124 mL/min (>60) 06/23/20 05:25 BUN/Creatinine Ratio 21.8 RATIO (10-20) H 06/23/20 05:25 Glucose 94 mg/dL (74-106) 06/23/20 05:25 Vancomycin Trough 10.4 ug/mL (5.0-15.0) 06/23/20 22:48 Microbiology: Microbiology 06/22/20 11:35 Wound Abcess - Knee Gram Stain - Final 06/22/20 11:35 Wound Abcess - Knee Wound Culture - Preliminary Staphylococcus aureus Weight used for dosin.9 kg Estimated Creatinine Clearance: 101ml/min Goal Trough: 15-20 mcg/mL Pharmacy Plan for Drug Dosing: The vancomycin trough drawn before last night's dose was 10.4. This is below goal range of 15-20 so will increase the dose to 2000mg IV q12h starting with the next dose later this morning. Will repeat another trough before the 4th new dose. Pharmacy Service will continue to monitor and adjust dosing as required. Follow-Up Labs: Trough Vancomycin Labs to be done on [date and time ordered]: 06/26/20 10:30
[2020-06-24 07:26] LABS: Anion Gap 5 (5-15); BUN 19 mg/dL (7-18); BUN/Creat Ratio 23.2 RATIO (10-20); Calcium,Total 8.5 mg/dL (8.5-10.1); Chloride 111 mmol/L (98-107); Creatinine, Serum 0.82 mg/dL (0.70-1.30); EST Glomerular Filtration Rate 101 mL/min (>60); Est Glom Filt Rate - Afr Amer 123 mL/min (>60); Estimated Creatinine Clearance 85.37 ml/min; Glucose 95 mg/dL (74-106); Potassium 4.3 mmol/L (3.5-5.1); Sodium Level 142 mmol/L (136-145)
[2020-06-24 08:05] VITALS: BP 147/101; PULSE 67; RESP 18; TEMP 36.6; O2SAT 95
[2020-06-24] MEDS: BETHANECHOL CHLORIDE 25 MG TABLET PO ×2 (08:09→13:20)
[2020-06-24] MEDS: Pantoprazole Sodium 40 MG Tablet PO (08:09)
[2020-06-24] MEDS: Tamsulosin HCl 0.4 MG Capsule PO (08:09)
[2020-06-24] MEDS: Enoxaparin 40 MG/0.4 ML Syringe SC (08:09)
--- NOTE | 2020-06-24 08:34 | DCINST_ITS ---
- Discharge Diagnoses Current Active Problems: Current Active and Chronic Problems Mild intellectual disability (Chronic) Cellulitis of left lower extremity (Acute) Infected abrasion of left lower extremity (Acute) Failure of outpatient treatment (Acute) You will use the following diet at home:: No restrictions Your food should be the consistency of: Regular Your liquids should be the consistency of: Regular/Thin Discharge Activity: Return to Normal Activity Call your doctor if your incision/area has: Continuous Slow Oozing, Sudden Increased Bleeding, Increased Pain/ Swelling, Increased Redness Call your doctor if you observe: Fever of 101 or Higher, Shortness of breath Cleanse incision/area with: Soap & Water, Keep Dressing Clean & Dry Additional Dressing/Incision Instructions:: Clean with soap and water daily and dry. Cover with clean gauze and secure with paper tape. Allergies/Adverse Reactions: Allergies No Known Allergies Allergy (Verified 06/22/20 11:02) Medications to take at Discharge Bethanechol Chloride 25 mg PO 4X/DAY 03/22/17 Multivit-Mins/Iron/Folic/Lycop [Centrum Men's Tablet] 1 each PO DAILY 03/22/17 Tamsulosin HCl [Flomax] 0.4 mg PO DAILY 09/10/19 Smz/Tmp Ds [Bactrim Ds] 1 tab PO BID #11 tab 06/24/20 The following prescriptions were given: Smz/Tmp Ds [Bactrim Ds] 1 tab PO BID #11 tab Transmission Status: Pending to [facility] Primary Care Physician: Ester Alexander DO [Primary Care Provider] - Within 2 Weeks Test Results: Test results from this visit will be discussed in further detail at your follow- up appointment, if applicable. Proposed Discharge Date: 06/24/20
--- NOTE | 2020-06-24 08:35 | DS.PCM_ITS ---
Discharge Date and Diagnosis - Problem List Patient Problems: Active and Suspected Problems Cellulitis of left lower extremity (Acute) Infected abrasion of left lower extremity (Acute) Failure of outpatient treatment (Acute) Date of Admission: 06/22/20 Date of Discharge: 06/24/20 - Primary Discharge Diagnosis Acute Problems: Active Problems Cellulitis of left lower extremity (Acute) Infected abrasion of left lower extremity (Acute) Failure of outpatient treatment (Acute) - Secondary Discharge Diagnosis Chronic Problems: Chronic Problems Mild intellectual disability (Chronic) Hospital Course and Treatment Consultations 06/22/20 16:48 Consult: Onc/Wound/reinforcing steel erector Routine Comment: Operations: None Procedures: None Summary of Care Provided: The patient is a 59 year old M presents with left knee cellulitis. Patient had abrasion after falling on his knee onto concrete. Patient some purulence that could be expressed. Patient was brought in the hospital and started on broad- spectrum antibiotics. Eventually culture grew out staph and patient was continue with vancomycin. Today it showed MRSA but sensitive to Bactrim. Patient will be discharged with Bactrim to complete a 7-day course of antibiotics. On exam today the wound was inspected and pressed on. No purulence could be expressed did have some sanguinous drainage, however. Is no overt fluctuance and I do not feel that there is any underlying abscess, at least not at this time. Patient can be discharged back to his halfway in stable condition. Patient just started to keep it clean and dry and clean with soap and water daily and to cover the bandage until healed. [] Patient Problems: Active and Suspected Problems Cellulitis of left lower extremity (Acute) Infected abrasion of left lower extremity (Acute) Failure of outpatient treatment (Acute) - Physical Exam Vitals/I&O's: Vital Signs Temp Pulse Resp BP Pulse Ox 36.6 C 67 18 147/101 H 95 06/24/20 08:05 06/24/20 08:05 06/24/20 08:05 06/24/20 08:05 06/24/20 08:05 Oxygen Delivery Method Room Air Weight: 114.9 kg Body Mass Index (BMI) 40.3 Intake and Output for Last 24 Hours 06/22/20 06/23/20 06/24/20 23:59 23:59 23:59 Intake Total 1885 / 2285 2320 / 2320 835 / 835 Output Total 500 / 500 Balance 1885 / 2085 1820 / 1820 835 / 835 Microbiology Past 72 Hours 06/22/20 11:35 Wound Abcess - Knee Gram Stain - Final 06/22/20 11:35 Wound Abcess - Knee Wound Culture - Final Meth. resistant Staph. aureus Laboratory Results 06/23/20 22:48: Vancomycin Trough 10.4 06/24/20 06:50: Sodium 142, Potassium 4.3, Chloride 111 H, Carbon Dioxide 26.0, Anion Gap 5, BUN 19 H, Creatinine 0.82, Estim Creat Clear Calc 85.37, Est GFR (MDRD) Af Amer 123, Est GFR (MDRD) Non-Af 101, BUN/Creatinine Ratio 23.2 H, Glucose 95, Calcium 8.5 Current Medications Acetaminophen (Acetaminophen 325 Mg Tablet) 650 mg PO Q6H PRN PRN PRN Reason: Pain Score 1-10/Temp > 100.7 F Last Admin: 06/24/20 06:48 Dose: 650 mg Documented by: Albuterol Sulfate (Albuterol 2.5 Mg/3 Ml Vial.Neb.) 2.5 mg INHALATION Q2H PRN PRN PRN Reason: Shortness of Breath/Wheezing Bethanechol Chloride (Bethanechol Chloride 25 Mg Tablet) 25 mg PO 4X/DAY [facility] Last Admin: 06/24/20 08:09 Dose: 25 mg Documented by: Enoxaparin Sodium (Enoxaparin 40 Mg/0.4 Ml Syringe) 40 mg SC DAILY [facility] Last Admin: 06/24/20 08:09 Dose: 40 mg Documented by: Vancomycin IV Pharmacy to Dose (1 ea/ Sodium Chloride) 500 mls @ 250 mls/hr IV X1 PRN; Protocol PRN Reason: Rx to Dose Vancomycin HCl 2,000 mg/ (Sodium Chloride) 540 mls @ 250 mls/hr IV Q12H [facility] Nitroglycerin (Nitroglycerin (Inpatient Use) 0.4 Mg Tab.Subl) 0.4 mg SUBLINGUAL Q5M PRN PRN Reason: CARDIAC/CHEST PAIN Ondansetron HCl (Ondansetron 4 Mg/2 Ml Vial) 4 mg IV Q8H PRN PRN PRN Reason: NAUSEA/VOMITING Oxycodone HCl (Oxycodone 5 Mg Tablet) 5 mg PO Q6H PRN PRN PRN Reason: Pain Score 6-10 Pantoprazole Sodium (Pantoprazole Sodium 40 Mg Tablet) 40 mg PO DAILY [facility] Last Admin: 06/24/20 08:09 Dose: 40 mg Documented by: Sodium Chloride (0.9% Saline Lock 10 Ml Syringe) 10 - 40 ml IV UD PRN PRN Reason: SALINE FLUSH Last Admin: 06/24/20 02:27 Dose: 10 ml Documented by: Tamsulosin HCl (Tamsulosin Hcl 0.4 Mg Capsule) 0.4 mg PO DAILY [facility] Last Admin: 06/24/20 08:09 Dose: 0.4 mg Documented by: Discharge Diet: No Restrictions Discharge Activity: Return to Normal Activity Call your doctor if your incision/area has: Continuous Slow Oozing, Sudden Increased Bleeding, Increased Pain/ Swelling, Increased Redness Call your doctor if you observe: Fever of 101 or Higher, Shortness of breath Cleanse incision/area with: Soap & Water, Keep Dressing Clean & Dry Additional Dressing/Incision Instructions:: Clean with soap and water daily and dry. Cover with clean gauze and secure with paper tape. Home Medications: Medications to take at Discharge Bethanechol Chloride 25 mg PO 4X/DAY 03/22/17 Multivit-Mins/Iron/Folic/Lycop [Centrum Men's Tablet] 1 each PO DAILY 03/22/17 Tamsulosin HCl [Flomax] 0.4 mg PO DAILY 09/10/19 Smz/Tmp Ds [Bactrim Ds] 1 tab PO BID #11 tab 06/24/20 Following Prescriptions Were Given to Patient: Smz/Tmp Ds [Bactrim Ds] 1 tab PO BID #11 tab Transmission Status: Pending to [facility] Primary Care Physician: Ester Alexander DO [Primary Care Provider] - Within 2 Weeks Medical Necessity - Tobacco Use Smoking Status: Never smoker Tobacco Use: Non-smoker Meaningful Use Info Meaningful Use Diagnoses (Choose all that apply): None applicable Inpatient E&M: 34149 Disch Hosp
[2020-06-24 13:45] VITALS: BP 142/98; PULSE 75; RESP 16; TEMP 36.6; O2SAT 98
--- NOTE | 2020-06-24 14:09 | CASEMGMT ---
Social Work Note Pt is discharging home today. RAY placed a call to pt's [facility] [employer] JOHN Ramirez and updated her on discharge. Ashley states she won't be able to transport pt until after 8:00pm today. RAY then updated that the hospital van transported pt home and pt has been discharged. RAY updated Ashley of this. Ashley states she will call [place] and follow up with him. RAY updated Ashley that discharge paperwork has been faxed to [facility] [employer] office. Ashley states understanding. RAY faxed discharge paperwork to [facility] of [employer]. Lucero Garnica SUPERVISOR COATING, STUDIO CAMERA OPERATOR
== END 2020-06-24 13:59 | disposition home or self-care (01) | DRG 603 ==
LOC: ED 12:19 → MS3 15:42
PROVIDERS: Admitting Provider Internal Medicine; Emergency Provider Emergency Medicine; PCP Internal Medicine
DX: L03.116 Cellulitis of left lower limb (principal); Z68.41 Body mass index [BMI] 40.0-44.9, adult; A49.02 Methicillin resistant Staphylococcus aureus infection, unspecified site; E66.01 Morbid (severe) obesity due to excess calories; S80.812A Abrasion, left lower leg, initial encounter; W01.0XXA Fall on same level from slipping, tripping and stumbling without subsequent striking against object, initial encounter; F70 Mild intellectual disabilities; Z82.49 Family history of ischemic heart disease and other diseases of the circulatory system; Z82.5 Family history of asthma and other chronic lower respiratory diseases; M79.89 Other specified soft tissue disorders; M19.90 Unspecified osteoarthritis, unspecified site
CPT/HCPCS: 36415; 73560; 80048; 80053; 80202; 83605; 85025; 85610; 85730; 87040; 87070; 87077; 87186; 87205; 93971; 97802; 99285; J7030; J7040; A4216

== ENCOUNTER → 2021-02-13 10:52 | Outpatient (CLI) | payer MEDICARE, MEDICAID, SELFPAY ==
[2020-06-22 16:54] VITALS: BMI 40.3
[2021-02-13 12:11] LABS: Anion Gap 5 (5-15); BUN 22 mg/dL (7-18); BUN/Creat Ratio 29.3 RATIO (10-20); Calcium,Total 8.6 mg/dL (8.5-10.1); Chloride 107 mmol/L (98-107); Creatinine, Serum 0.75 mg/dL (0.70-1.30); EST Glomerular Filtration Rate 112 mL/min (>60); Est Glom Filt Rate - Afr Amer 136 mL/min (>60); Glucose 95 mg/dL (74-106); PSA,Total - Annual Screen 0.74 ng/mL (0.00-4.00); Potassium 4.2 mmol/L (3.5-5.1); Sodium Level 138 mmol/L (136-145)
[2021-02-13 12:49] LABS: Hepatitis C Antibody Non-Reactive (Nonreactive)
== END ==
PROVIDERS: PCP Internal Medicine; Visit Provider Urology
DX: Z12.5 Encounter for screening for malignant neoplasm of prostate (principal); Z11.59 Encounter for screening for other viral diseases
CPT/HCPCS: 36415; 80048; 84153; 86803; G0103

== ENCOUNTER → 2023-01-21 | Outpatient (CLI) | payer MEDICARE, MEDICAID, SELFPAY ==
[2023-01-21 13:23] LABS: Anion Gap 4 (5-15); BUN 13 mg/dL (7-18); BUN/Creat Ratio 16.1 RATIO (10-20); Calcium,Total 8.4 mg/dL (8.5-10.1); Chloride 108 mmol/L (98-107); Creatinine, Serum 0.81 mg/dL (0.70-1.30); EST Glomerular Filtration Rate 102 mL/min (>60); Est Glom Filt Rate - Afr Amer 124 mL/min (>60); Glucose 100 mg/dL (74-106); PSA,Total- Diagnostic 1.36 ng/mL (0.0-4.0); Potassium 4.3 mmol/L (3.5-5.1); Sodium Level 138 mmol/L (136-145)
== END | disposition home or self-care (01) ==
LOC: LAB 11:26
PROVIDERS: PCP Internal Medicine; Referring Provider Urology; Visit Provider Urology
DX: N40.0 Benign prostatic hyperplasia without lower urinary tract symptoms (principal)
CPT/HCPCS: 36415; 80048; 84153

== ENCOUNTER → 2023-08-05 | Outpatient (CLI) | payer MEDICARE, MEDICAID, SELFPAY ==
--- NOTE | 2023-08-05 11:13 | US_ITS ---
HISTORY: acute pain of left knee. TECHNIQUE: Routine and color duplex imaging of the left knee area pain. 26 images. COMPARISON: XR 07/22/2023. FINDINGS: Moderate complex fluid collection with nodular soft tissue thickening and mild hyperemia along the wall. US/Ext Non Vasc Limited/Soft Tiss IMPRESSION: Moderate complex fluid collection with nodular soft tissue thickening along the wall in the left anterior knee, which may represent effusion with synovitis or bursitis. Consider follow-up MRI. Electronically Signed: Anne Marie London MD at 12:33 EST ,
== END | disposition home or self-care (01) ==
LOC: US 11:12
PROVIDERS: PCP Internal Medicine; Referring Provider Internal Medicine; Visit Provider Internal Medicine
DX: M25.562 Pain in left knee (principal)
CPT/HCPCS: 76882

== ENCOUNTER → 2023-08-21 | Outpatient (CLI) | payer MEDICARE, MEDICAID, SELFPAY ==
[2023-08-21 11:28] LABS: Cholesterol 146 mg/dL (200); High Density Lipoprotein 44 mg/dL; Triglycerides 60 mg/dL; Very Low Density Lipoprotein 12 mg/dL (5-40)
== END | disposition home or self-care (01) ==
LOC: MTLAB 08:44
PROVIDERS: PCP Internal Medicine; Referring Provider Internal Medicine; Visit Provider Internal Medicine
DX: E78.1 Pure hyperglyceridemia (principal)
CPT/HCPCS: 36415; 80061

== ENCOUNTER → 2024-02-03 | Outpatient (CLI) | payer MEDICARE, MEDICAID, SELFPAY ==
[2024-02-03 10:16] LABS: PSA,Total - Annual Screen 2.35 ng/mL (0.00-4.00)
== END | disposition home or self-care (01) ==
LOC: LAB 08:59
PROVIDERS: PCP Internal Medicine; Visit Provider Urology
DX: Z12.5 Encounter for screening for malignant neoplasm of prostate (principal)
CPT/HCPCS: 36415; 84153; G0103

== ENCOUNTER → 2024-03-02 | Outpatient (CLI) | payer MEDICARE, MEDICAID, SELFPAY ==
--- NOTE | 2024-03-02 08:19 | CT_ITS ---
STUDY: CT BRAIN WITHOUT CONTRAST REASON FOR EXAM: Male, 63 years old. Memory impairment RADIATION DOSAGE (If Supplied By Facility): CTDIvol = ( 47.06 ) mGy, DLP = ( 943.26 ) mGycm TECHNIQUE: Transaxial CT imaging of the brain was performed without administration of intravenous contrast material. Individualized dose optimization techniques were used for this CT. COMPARISON: No relevant priors. FINDINGS: Normal soft tissue structures. Normal calvarium. Normal size ventricles and extra-axial spaces for the patient''s age. Normal white matter tracts of the cerebral hemispheres. Normal basal ganglia and thalami. Normal brainstem. Normal cerebellum. There is no intracranial hemorrhage. There are no findings of an acute ischemic infarction. Normal visualized paranasal sinuses. CT/Brain/Head without Contrast IMPRESSION: Normal unenhanced CT scan of the brain. Electronically Signed: Maverick Bell MD at 15:03 EDT ,
== END | disposition home or self-care (01) ==
LOC: CT 08:19
PROVIDERS: PCP Internal Medicine; Referring Provider Internal Medicine; Visit Provider Internal Medicine
DX: R41.3 Other amnesia (principal)
CPT/HCPCS: 70450

== ENCOUNTER 2024-03-30 15:00 | Outpatient (RCR) | payer MEDICARE, MEDICAID, SELFPAY ==
--- NOTE | 2024-02-24 14:47 | HP.PTEVAL_ITS ---
Patient's Visit Information Visit Information Visit Information: GATITO WONG is a 63 year old M referred to Physical Therapy by Dr. Ester Alexander DO with a diagnosis of L knee pain. Date of Evaluation: 02/24/24 Physical Therapist: Shaun Sandoval, PT, ATC Visit Plan Frequency: 2-3x /Week Duration: 4-6 Weeks Plan: L knee strengthening, balance and proprio, core strengthening, Nustep, and HEP Subjective Subjective: Pt reports he has had L knee pain for a long time. Pt reports he has trouble answering questions, but is going to try his best today. Pt notes most of his pain is on the anterior region of his L knee. Pt denies his L knee giving out on him or locking up. Pt reports he has one step to enter his house which he has to go up with his R leg. Pt denies tingling or numbness at his time in his L LE. Pt reports occasional sleep difficulty secondary to pain. Pt reports prolonged ambulation increases his L knee pain. Pt notes sitting helps to decrease his pain. Pt denies any recent xrays. 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 3/10 pain while sitting here in the clinic, and increases quite a bit with stair negotiation (Pt is unable to rate his pain at worst) Pain L knee pain: Pain Intensity (Out of 10): 3 Pain Intensity Range: Unrated Objective Objective: Neuro: B LE sensation is WNL to light touch. Palpation: Pt is very tender along the medial joint line of his L knee. Mild swelling is noted today. No obvious deformity is present. Tu seconds ROM: L knee 0-15-95 degrees; R knee 0-110 degrees MMT: R knee flex= 23, ext= 27 #F; L knee flex= 23, ext= 17 #F Balance/Special Test Scores Lower Extremity Functional Score: 53 Goals Goal 1:: Decrease L knee pain x 50% to aid with sleep Goal Time Frame: 4-6 Weeks Goal 2:: Increase L knee ext strength x 5#F to aid with stair negotiation Goal Time Frame: 4-6 Weeks Goal 3:: Pt will perform the TUG test in under 10 sec to aid with community mobility Goal Time Frame: 4-6 Weeks Goal 4:: I with HEP Goal Time Frame: 4-6 Weeks Rehabilitation Potential Physical Therapy Diagnosis: Pt has L knee pain, weakness, and limited ROM secondary to L knee OA Rehabilitation Potential: Good Anticipated Interventions Patient/Client Instruction: Educate patient on: Condition and Plan of Care For the Purpose of:: To improve self management Therapeutic Exercise to Include: Strength training, Balance training, Flexibilty training and Dynamic Lumbar Stabilization For the Purpose of:: To decrease pain, To increase ROM and To improve muscle performance and motor function Cryotherapy (ice pack, ice massage): Yes For the Purpose of:: To decrease pain Text: Thank you for the opportunity to evaluate your patient. For Medicare and Medicare HMO plans, please review the plan of care and approve it. It will need to be FAXED BACK to us at [phone] for Medicare purposes. For Medicare only, by signing this I certify the plan of care. Please let me know if there are questions or concerns regarding this plan of care. Physician Signature: Date:
--- NOTE | 2024-03-30 15:34 | HP.PTDCSUM ---
Discharge Summary D/C summary: It has been my pleasure to treat GATITO WONG referred by Dr. Ester Alexander DO, with the diagnosis of L knee pain for a total of 9 visit(s). Discharge Date: Please see the following information for a summary of their discharge status. Subjective Subjective: Pt reports he feels better now since having surgery Pain L knee pain: Pain Intensity (Out of 10): 5 Overall Improvement % Improvement: 60 Objective Objective/Function: L knee pain is 4/10, and no sleep difficulty secondary to pain MMT: L knee ext= 39 #F Pt is I with HEP TU seconds Goals Goal 1:: Decrease L knee pain x 50% to aid with sleep Goal Progress: Goal Met Goal 2:: Increase L knee ext strength x 5#F to aid with stair negotiation Goal Progress: Goal Met Goal 3:: Pt will perform the TUG test in under 10 sec to aid with community mobility Goal Progress: Goal Met Goal 4:: I with HEP Goal Progress: Goal Met Plan Plan: Discharge to [facility] D/C Information d/c sentence: If there are questions or concerns regarding this patient's physical therapy, please feel free to call me at [phone]. Thank you for the referral of this patient. Sincerely, Shaun Sandoval, PT, ATC Balance/Gait/Functional tests Balance/Special Test Scores Lower Extremity Functional Score: 67 Improvement % Improvement: 60
== END 2024-03-30 19:00 | disposition home or self-care (01) ==
LOC: PT 15:00
PROVIDERS: PCP Internal Medicine; Referring Provider Internal Medicine; Visit Provider Internal Medicine
DX: M25.561 Pain in right knee (principal); M17.12 Unilateral primary osteoarthritis, left knee
CPT/HCPCS: 97110; 97161; 97530

== ENCOUNTER → 2024-04-21 | Outpatient (CLI) | payer MEDICARE, MEDICAID, SELFPAY ==
--- NOTE | 2024-04-21 09:55 | CT_ITS ---
INDICATION: GROSS HEMATURIA- HISTORY OF TURP EXAMINATION: CT ABDOMEN AND PELVIS WITH AND WITHOUT CONTRAST - CT Abdomen And Pelvis WO/W Contrast Injection TECHNIQUE: Helically acquired images were obtained of the abdomen and pelvis both before and after IV contrast. The protocol utilizes one or more of the following dose reduction techniques: automated exposure control, adjustment of mA and/or kV according to patient size,and/or use of iterative reconstruction technique. IV Contrast dosage and agent: 90 cc of Isovue-300 Oral contrast: None. RADIATION DOSAGE (If Supplied By Facility): CTDIvol = ( 26.83 ) mGy, DLP = ( 4644.02 ) mGycm COMPARISON: No relevant prior comparison study available FINDINGS: LOWER CHEST: Lung bases are clear. No cardiomegaly or pericardial effusion. LIVER: Homogeneous. No focal mass. GALLBLADDER AND BILIARY TREE: No calcified gallstones. No gallbladder distension or wall edema. No intra- or extrahepatic biliary ductal dilation. PANCREAS: No focal cystic or solid mass. SPLEEN: Normal size without focal cystic or solid mass. ADRENAL GLANDS: No nodules. KIDNEYS AND URETERS: Bilateral simple renal cysts, the largest is the left kidney measuring about 2.5 cm for which no further follow-up exam is needed. No hydronephrosis. PERITONEUM: No ascites or free air. No other fluid collection. BOWEL: No evidence of acute appendicitis. No stomach or bowel distension. Diverticulosis without evidence of acute diverticulitis. Fecal retention. LYMPH NODES: No enlarged mesenteric or retroperitoneal lymph nodes. VESSELS: Atherosclerotic calcifications and tortuosity of the abdominal aorta without evidence of aneurysm. Ectasia of the common iliac arteries bilaterally. URINARY BLADDER: Distended urinary bladder. REPRODUCTIVE ORGANS: No pelvic masses. ABDOMINAL WALL: Small bilateral inguinal hernias containing fat larger on the right side. BONES: Degenerative changes of the spine. CT/CT Abd/Pelvis W/WO Contrast IMPRESSION: 1. No focal acute inflammatory process. 2. No evidence of urinary tract stones or hydronephrosis. 3. Bilateral renal cysts appears to be simple. 4. Small bilateral inguinal hernias containing fat. Electronically Signed: Ashu Mao MD at 11:26 EDT ,
[2024-04-21 10:40] LABS: CREATININE FINGERSTICK < 1.0 mg/dL (0.70-1.30); EGFR FINGERSTICK > 60.0000 mL/min (>60)
== END | disposition home or self-care (01) ==
PROVIDERS: PCP Internal Medicine; Referring Provider Urology; Visit Provider Urology
DX: R31.0 Gross hematuria (principal); R30.0 Dysuria; Z01.812 Encounter for preprocedural laboratory examination
CPT/HCPCS: 74178; 87086; Q9967

== ENCOUNTER → 2024-07-23 | Outpatient (CLI) | payer MEDICARE, MEDICAID, SELFPAY | END | disposition home or self-care (01) | LOC: LAB 13:56 | PROVIDERS: PCP Internal Medicine; Referring Provider Urology; Visit Provider Urology | DX: R31.0 Gross hematuria (principal) | CPT/HCPCS: 87077; 87086; 87088; 87186 ==